=== PATIENT | female | born 1975 | race African-American/Black ===

== ENCOUNTER 2019-10-04 10:31 | Emergency (ER) | payer SELFPAY ==
[2019-10-04] MEDS ORDERED: KETOROLAC 30 MG/ML INJ ONE (11:49)
[2019-10-04] MEDS ORDERED: NA CHLORIDE 0.9% 1,000 ML ONE (11:49)
[2019-10-04 12:10] LABS: Absolute Lymphocytes (CBC) 1.6 K/uL (0.7-4.9); Basophils % 0.9 % (0-1.3); Hematocrit 32.5 % (36.0-45.0); MPV 7.3 fL (7.6-11.3); RBC Red Blood Cell Count 3.31 M/uL (3.86-4.86)
[2019-10-04 12:14] LABS: Urine Blood 1+ (NEG); Urine Glucose NEGATIVE (NEG); Urine Protein NEGATIVE (NEG); Urine pH 6.5 (5.0-7.0)
[2019-10-04 12:26] LABS: ALT/SGPT 19 U/L (12-78); AST/SGOT 13 U/L (15-37); Albumin 3.4 g/dL (3.4-5.0); Alkaline Phosphatase 42 U/L (45-117); BUN Blood Urea Nitrogen 13 mg/dL (7-18); Bicarbonate 27 mmol/L (21-32); Bilirubin Direct 0.2 mg/dL (0-0.2); Bilirubin Total 0.5 mg/dL (0.2-1.0); Glucose Level 97 mg/dL (74-106); Lipase 153 U/L (73-393); Potassium 4.2 mmol/L (3.5-5.1); Protein, Total 6.9 g/dL (6.4-8.2); Sodium Level 139 mmol/L (136-145)
--- NOTE | 2019-10-04 13:06 | RAD REPORT ---
EXAM DESCRIPTION: CT - Abdomen Pelvis W Contrast - 10/04/2019 12:59 pm CLINICAL HISTORY: Flank pain;Abd pain COMPARISON: No comparisons TECHNIQUE: Biphasic, helical CT imaging of the abdomen and pelvis was performed following 100 ml non -ionic IV contrast. No oral contrast administered. All CT scans are performed using dose optimization technique as appropriate and may include automated exposure control or mA/KV adjustment according to patient size. FINDINGS: No suspicious findings in the lung bases. The liver, spleen, and pancreas show no suspicious findings. Cholecystectomy clips are present. No ab normal biliary tree dilatation. Symmetric renal function is seen with no hydronephrosis or suspicious renal mass. No pyelonephritis o r acute parenchymal process. No bladder abnormalities. No adrenal abnormalities. No dilated bowel loops or bowel wall thickening. Appendectomy clips are seen. Moderate stool volume p resent in the colon. No free air or pneumatosis. Physiologic quantity of fluid seen in the cul de sac. There is congestio n or edema in the adnexal fatty tissues. Myometrium of the uterus is slightly heterogeneous and could contain small fibroids. No dominant mass lesions seen. Ovaries are difficult to uniquely identified distinguish from the adjacent on opacified bowel. A primary or dominant ovarian process is not suspec beto. No hernia, mass or bulky lymphadenopathy. No suspicious bony findings. IMPRESSION: Physiologic quantity of fluid is present in the cul de sac. There is some congestion or edema in the adnexal fatty tissues but no discrete ovarian process seen. No acute GI process. No pyelonephritis seen. Urinary bladder is only partially filled limiting evaluation of cystitis.
[2019-10-04] MEDS ORDERED: CEFTRIAXONE/SWI 1gm 1 GM/10 ML SYR ONE (13:51)
[2019-10-04] MEDS ORDERED: DICYCLOMINE HCL 10 MG CAP ONE (14:11)
--- NOTE | 2019-10-04 14:57 | ER ---
Nurse's Notes [facility] Name: Erin Ivan Age: 44 yrs Sex: Female : 1975 Arrival Date: 10/04/2019 Time: 10:34 Bed 18 Private MD: None, None Diagnosis: Urinary tract infection, site not specified Presentation: 10/03 10:50 Chief complaint: Patient states: suprapubic pain and low back pain that began 3 days ss ago. Coronavirus screen: Proceed with normal triage. Patient denies a cough. Patient denies shortness of breath or difficulty breathing. Patient denies measured and/or subjective temperature greater than 100.4F prior to today's visit. Patient denies travel on a cruise ship or to a country the [facility] currently lists as an affected area. Patient denies contact with known and/or suspected case of COVID-19. Ebola Screen: Patient denies exposure to infectious person. Patient denies travel to an Ebola-affected area in the 21 days before illness onset. Initial Sepsis Screen: Does the patient meet any 2 criteria? No. Patient's initial sepsis screen is negative. Does the patient have a suspected source of infection? No. Patient's initial sepsis screen is negative. Risk Assessment: Do you want to hurt yourself or someone else? Patient reports no desire to harm self or others. Onset of symptoms was October 01, 2019. 10:50 Method Of Arrival: Ambulatory ss 10:50 Acuity: BLANCA 3 ss Triage Assessment: 13:56 General: Appears. Historical: - Allergies: 10:54 No Known Allergies; ss - Immunization history:: Adult Immunizations up to date. - Social history:: Smoking status: Patient reports the use of cigarette tobacco products, denies chronic smoking, but will smoke occasionally. Screenin:56 Abuse screen: Denies threats or abuse. Nutritional screening: No deficits noted. Tuberculosis screening: No symptoms or risk factors identified. Fall Risk None identified. Assessment: 11:15 General: Appears uncomfortable, Behavior is calm, cooperative. Pain: Complains of pain ah in pelvis Pain does not radiate. Pain currently is 8 out of 10 on a pain scale. Quality of pain is described as crampy, Pain began 2-3 days ago. Neuro: Level of Consciousness is awake, alert, Oriented to person, place, time. Cardiovascular: Heart tones S1 S2 present Capillary refill < 3 seconds Patient's skin is warm and dry. Respiratory: Airway is patent Respiratory effort is even, unlabored, Respiratory pattern is regular, symmetrical. GI: Bowel sounds present X 4 quads. Abdomen is tender to palpation in suprapubic area Reports nausea. : Reports pain in suprapubic area with urination. EENT: No signs and/or symptoms were reported regarding the EENT system. Derm: No signs and/or symptoms reported regarding the dermatologic system. Musculoskeletal: No signs and/or symptoms reported regarding the musculoskeletal system. 12:46 Reassessment: Pt to CT scan via WC. 13:00 Reassessment: Patient and/or family updated on plan of care and expected duration. Pain ah level reassessed. Awaiting results from radiology and labs Patient states feeling better. 13:45 Reassessment: Pt complaining of pain again and also states that she has not had ah anything to eat today. Informed provider. Awaiting on orders. 14:15 Reassessment: Pt lying in bed with no distress noted. 15:00 Reassessment: Discharge instructions given. Education on prescriptions given and voiced ah understanding. Vital Signs: 10:50 BP 118 / 87; Pulse 76; Resp 16; Temp 98.2(TE); Pulse Ox 100% on R/A; Weight 61.23 kg; ss Height 5 ft. 8 in. (172.72 cm); Pain 9/10; 12:00 BP 117 / 78; Pulse 63; Resp 18; Pulse Ox 100% ; ah 13:49 BP 114 / 73; Pulse 63; Resp 15; Pulse Ox 100% ; ah 14:45 BP 108 / 87; Pulse 76; Resp 18; Pulse Ox 100% ; ah 10:50 Body Mass Index 20.53 (61.23 kg, 172.72 cm) ED Course: 10:34 Patient arrived in ED. mr 10:35 None, None is Private Physician. mr 10:53 Triage completed. ss 10:54 Arm band placed on right wrist. ss 11:01 Vladimir Lam NP is PHCP. pm1 11:01 Tay Park MD is Attending Physician. pm1 11:40 Elsa Villareal, ROSALINA is Primary Nurse. ah 11:50 Inserted saline lock: 22 gauge in left antecubital area, using aseptic technique. ah 12:00 Urine collected: clean catch specimen, clear, cindy colored. jp3 12:59 CT completed. Patient moved back from CT. mw3 12:59 CT Abd/Pelvis - IV Contrast Only In Process Unspecified. [facility] 13:57 Patient has correct armband on for positive identification. Bed in low position. Call light in reach. Side rails up X2. 15:00 No provider procedures requiring assistance completed. IV discontinued, intact, Pressure dressing applied. Administered Medications: 11:22 CANCELLED (Physician Discretion): morphine 4 mg IVP once; RASS on ADMIN: Combtv4, Very pm1 Agttd3, Agttd2, Rstlss1, AlertClm0, Drwsy-1, Lt Sdtn-2, Mod Sdtn-3, Dp Sdtn-4, UnArsble-5 11:22 Not Given (Physician Discretion): Zofran (Ondansetron) 4 mg IVP once; over 2 minutes pm1 11:55 Drug: NS 0.9% 1000 ml Route: IV; Rate: 1000 ml; Site: left antecubital; 13:47 Follow up: Response: No adverse reaction; IV Status: Completed infusion 15:43 Follow up: Response: No adverse reaction; IV Status: Completed infusion; IV Intake: 1000ml 11:55 Drug: TORadol - Ketorolac 15 mg Route: IVP; Site: left antecubital; 12:55 Follow up: Response: No adverse reaction; Pain is decreased 14:10 Drug: Bentyl 20 mg Route: PO; 15:10 Follow up: Response: No adverse reaction 14:11 Drug: Rocephin 1 grams Route: IV; Rate: calculated rate; Site: left antecubital; 15:42 Follow up: Response: No adverse reaction; IV Status: Completed infusion Intake: 15:43 IV: 1000ml; Total: 1000ml. Outcome: 14:56 Discharge ordered by MD. pm1 15:20 Discharged to home ambulatory. 15:20 Condition: stable 15:20 Discharge instructions given to patient, Instructed on discharge instructions, follow up and referral plans. Demonstrated understanding of instructions, follow-up care, medications, Prescriptions given X 2. 15:45 Patient left the ED. Signatures: Dispatcher [employer] EDMS Ingrid Diaz mr Sylvia Oshea, RN RN ss Vladimir Lam, KAIAWHINA KAIAWHINA pm1 Joselin Mayorga mw3 Deandre Martinez jp3 Elsa Villareal, RN RN
--- NOTE | 2019-10-04 14:57 | EDPHYS ---
Physician Documentation [facility] Name: Erin Ivan Age: 44 yrs Sex: Female : 1975 Arrival Date: 10/04/2019 Time: 10:34 Bed 18 Private MD: None, None ED Physician Tay Park HPI: 10/03 11:22 This 44 yrs old Black Female presents to ER via Ambulatory with complaints of Abdominal pm1 Pain, Back Pain. 11:22 The patient presents with abdominal pain suprapubic area. Onset: The symptoms/episode pm1 began/occurred 3 day(s) ago. The symptoms radiate to the right flank. Associated signs and symptoms: Pertinent positives: Right lower abdominal pain with urination, Pertinent negatives: nausea, vomiting, and diarrhea, chest pain, fever, shortness of breath, vaginal discharge. The symptoms are described as sharp. Modifying factors: The symptoms are alleviated by nothing, the symptoms are aggravated by Urination. Severity of pain: in the emergency department the pain is actually worse. The patient has not experienced similar symptoms in the past. Historical: - Allergies: 10:54 No Known Allergies; ss - Immunization history:: Adult Immunizations up to date. - Social history:: Smoking status: Patient reports the use of cigarette tobacco products, denies chronic smoking, but will smoke occasionally. ROS: 11:25 Constitutional: Negative for fever, chills, and weight loss, Cardiovascular: Negative pm1 for chest pain, palpitations, and edema, Respiratory: Negative for shortness of breath, cough, wheezing, and pleuritic chest pain. 11:25 MS/Extremity: Negative for injury and deformity, Skin: Negative for injury, rash, and discoloration, Neuro: Negative for headache, weakness, numbness, tingling, and seizure. 11:25 Abdomen/GI: Positive for abdominal pain, of the suprapubic area, Negative for nausea, vomiting, and diarrhea. 11:25 Back: Positive for flank pain, on the right, Negative for pain with movement. 11:25 : Positive for burning with urination. Exam: 11:25 Constitutional: This is a well developed, well nourished patient who is awake, alert, pm1 and in no acute distress. Head/Face: Normocephalic, atraumatic. Neck: Trachea midline, no thyromegaly or masses palpated, and no cervical lymphadenopathy. Supple, full range of motion without nuchal rigidity, or vertebral point tenderness. No Meningismus. Chest/axilla: Normal chest wall appearance and motion. Nontender with no deformity. No lesions are appreciated. 11:25 Back: No spinal tenderness. No costovertebral tenderness. Full range of motion. Skin: Warm, dry with normal turgor. Normal color with no rashes, no lesions, and no evidence of cellulitis. MS/ Extremity: Pulses equal, no cyanosis. Neurovascular intact. Full, normal range of motion. 11:25 Cardiovascular: Exam negative for acute changes, Rate: normal, Rhythm: regular, Pulses: no pulse deficits are appreciated, Edema: is not appreciated. 11:25 Respiratory: Exam negative for acute changes, respiratory distress, shortness of breath. 11:25 Abdomen/GI: Inspection: abdomen appears normal, Palpation: soft, mild abdominal tenderness, in the suprapubic area, mass, is not appreciated, rebound tenderness, is not appreciated. 11:25 Neuro: Exam negative for acute changes, Orientation: is normal, Mentation: is normal, Motor: is normal, moves all fours. Vital Signs: 10:50 BP 118 / 87; Pulse 76; Resp 16; Temp 98.2(TE); Pulse Ox 100% on R/A; Weight 61.23 kg; ss Height 5 ft. 8 in. (172.72 cm); Pain 9/10; 12:00 BP 117 / 78; Pulse 63; Resp 18; Pulse Ox 100% ; ah 13:49 BP 114 / 73; Pulse 63; Resp 15; Pulse Ox 100% ; ah 14:45 BP 108 / 87; Pulse 76; Resp 18; Pulse Ox 100% ; ah 10:50 Body Mass Index 20.53 (61.23 kg, 172.72 cm) ss MDM: 11:01 Patient medically screened. pm1 11:23 ED course: Patient does not want any narcotic medications. pm1 14:55 Data reviewed: vital signs. Data interpreted: Pulse oximetry: on room air is 100 %. pm1 Interpretation: normal. Counseling: I had a detailed discussion with the patient and/or guardian regarding: the historical points, exam findings, and any diagnostic results supporting the discharge/admit diagnosis, lab results, radiology results, the need for outpatient follow up, to return to the emergency department if symptoms worsen or persist or if there are any questions or concerns that arise at home. 10/03 11:22 Order name: Basic Metabolic Panel; Complete Time: 12:29 pm1 10/03 11:22 Order name: CBC with Diff; Complete Time: 12:21 pm1 10/03 11:22 Order name: Creatinine for Radiology; Complete Time: 12:21 pm1 10/03 11:22 Order name: Hepatic Function; Complete Time: 12:29 pm1 10/03 11:22 Order name: Lipase; Complete Time: 12:29 pm1 10/03 12:09 Order name: Urine Dipstick--Ancillary (enter results); Complete Time: 12:21 tt3 10/03 11:22 Order name: CT Abd/Pelvis - IV Contrast Only; Complete Time: 13:08 pm1 10/03 12:09 Order name: Urine --Ancillary (enter results); Complete Time: 12:21 tt3 10/03 11:22 Order name: IV Saline Lock; Complete Time: 12:03 pm10/03 11:22 Order name: Labs collected and sent; Complete Time: 12:03 pm1 Administered Medications: 11:22 CANCELLED (Physician Discretion): morphine 4 mg IVP once; RASS on ADMIN: Combtv4, Very pm1 Agttd3, Agttd2, Rstlss1, AlertClm0, Drwsy-1, Lt Sdtn-2, Mod Sdtn-3, Dp Sdtn-4, UnArsble-5 11:22 Not Given (Physician Discretion): Zofran (Ondansetron) 4 mg IVP once; over 2 minutes pm1 11:55 Drug: NS 0.9% 1000 ml Route: IV; Rate: 1000 ml; Site: left antecubital; ah 13:47 Follow up: Response: No adverse reaction; IV Status: Completed infusion ah 15:43 Follow up: Response: No adverse reaction; IV Status: Completed infusion; IV Intake: ah 1000ml 11:55 Drug: TORadol - Ketorolac 15 mg Route: IVP; Site: left antecubital; ah 12:55 Follow up: Response: No adverse reaction; Pain is decreased ah 14:10 Drug: Bentyl 20 mg Route: PO; ah 15:10 Follow up: Response: No adverse reaction ah 14:11 Drug: Rocephin 1 grams Route: IV; Rate: calculated rate; Site: left antecubital; 15:42 Follow up: Response: No adverse reaction; IV Status: Completed infusion Disposition: 10/04/19 14:56 Discharged to Home. Impression: Urinary tract infection, site not specified. - Condition is Stable. - Discharge Instructions: Abdominal Pain, Adult, Urinary Tract Infection, Adult. - Prescriptions for Bentyl 20 mg Oral Tablet - take 1 tablet by ORAL route every 6 hours As needed; 20 tablet. Macrobid 100 mg Oral Capsule - take 1 capsule by ORAL route every 12 hours for 10 days; 20 capsule. - Medication Reconciliation Form, Thank You Letter, Antibiotic Education, Prescription Opioid Use form. - Follow up: Emergency Department; When: As needed; Reason: Worsening of condition. Follow up: Private Physician; When: 2 - 3 days; Reason: Recheck today's complaints, Continuance of care, Re-evaluation by your physician. - Problem is new. - Symptoms have improved. Addendum: 10/06/2019 20:16 Co-signature as Attending Physician, Tay Park MD I agree with the assessment and c gomez plan of care. Signatures: Dispatcher [employer] Tay Medina MD MD cha Smirch, Shelby, RN RN Vladimir Chavez NP [employer] pm1 Elsa Villareal RN RN Corrections: (The following items were deleted from the chart) 10/03 11:22 11:22 morphine 4 mg IVP once; RASS on ADMIN: Combtv4, Very Agttd3, Agttd2, Rstlss1, pm1 AlertClm0, Drwsy-1, Lt Sdtn-2, Mod Sdtn-3, Dp Sdtn-4, UnArsble-5 ordered. pm1 15:45 14:56 10/04/2019 14:56 Discharged to Home. Impression: Urinary tract infection, site ah not specified. Condition is Stable. Forms are Medication Reconciliation Form, Thank You Letter, Antibiotic Education, Prescription Opioid Use. Follow up: Emergency Department; When: As needed; Reason: Worsening of condition. Follow up: Private Physician; When: 2 - 3 days; Reason: Recheck today's complaints, Continuance of care, Re-evaluation by your physician. Problem is new. Symptoms have improved. pm1
[2019-10-04 16:16] VITALS: TEMP 98.2; O2SAT 100
[2019-10-04 16:19] VITALS: BP 114/73
== END 2019-10-04 15:45 | disposition home or self-care (01) ==
LOC: ER 10:31
DX: N39.0 Urinary tract infection, site not specified (principal); F17.210 Nicotine dependence, cigarettes, uncomplicated
CPT/HCPCS: 36415; 74177; 80048; 80076; 81003; 81025; 83690; 85025; 96361; 96365; 96366; 96375; 99284; J0696; J7030; Q9967

== ENCOUNTER 2020-05-04 12:57 | Emergency (ER) | payer SELFPAY ==
[2020-05-04 13:55] LABS: Absolute Lymphocytes (CBC) 1.8 K/uL (0.7-4.9); Basophils % 0.2 % (0-1.3); Hematocrit 34.3 % (36.0-45.0); Lymphocytes % 24.1 % (15.3-44.8); MPV 7.5 fL (7.6-11.3); RBC Red Blood Cell Count 3.61 M/uL (3.86-4.86)
[2020-05-04 14:05] LABS: Urine Bacteria <20 /HPF (<20); Urine RBC <5 /HPF (NONE SEEN)
[2020-05-04 14:26] LABS: Urine Blood TRACE (NEG); Urine Glucose TRACE (NEG)
[2020-05-04 14:27] LABS: Urine Protein 2+ (NEG)
[2020-05-04] MEDS ORDERED: KETOROLAC 30 MG/ML INJ ONE (14:30)
--- NOTE | 2020-05-04 14:32 | RAD REPORT ---
EXAM DESCRIPTION: CT - Stone Protocol - 05/04/2020 1:47 pm CLINICAL HISTORY: FLANK PAIN, right-side with prior appendectomy cholecystectomy procedures COMPARISON: Abdomen and Pelvis W Contrast dated 10/04/2019 TECHNIQUE: Axial 3 mm thick images were obtained without oral or IV contrast. The [id number] span s the entirety of the system including uppermost abdomen and lung bases. All CT scans are performed using dose optimization technique as appropriate and may include automated exposure control or mA/KV adjustment according to patient size. FINDINGS: No hydronephrosis is present and no obstructing ureteral calculi. Small calcification at t he right pelvis matches a has a phlebolith to the October 04, 2019 study. There is a punctate nonobstructi ng calculus in the lateral mid left kidney calyx. No suspicious renal masses. Isodense masses and julio c lonephritis are not excluded on a stone protocol CT scan. No significant adrenal finding. No urinary bladder suspicious finding. No uterine abnormality seen. Left ovarian cyst is suspected posteriorly o n the left. No right ovarian abnormality suspected. Trace physiologic free fluid. Imaged portions of the liver, spleen and pancreas show no suspicious findings on non-contrast imaging . Cholecystectomy clips are present. No biliary tree dilatation. No suspicious bowel findings. Appendectomy clips are present. No acute GI process seen. No hernia, mass or bulky lymphadenopathy noted. No free air, free fluid or inflammatory stranding. No significant bony abnormality. IMPRESSION: No hydronephrosis, obstructing calculus or acute finding. Isodense masses and pyelonephritis are not excluded on stone protocol technique. As detailed above, no acute abdominal or pelvic process seen. No suspicious change from the September 2019 examination.
[2020-05-04 14:38] LABS: Albumin 3.9 g/dL (3.4-5.0); Bilirubin Direct 0.2 mg/dL (0-0.2); Bilirubin Total 0.6 mg/dL (0.2-1.0); Potassium 3.9 mmol/L (3.5-5.1); Protein, Total 7.9 g/dL (6.4-8.2)
--- NOTE | 2020-05-04 14:44 | EDPHYS ---
Physician Documentation [facility] Name: Erin Ivan Age: 45 yrs Sex: Female : 1975 Arrival Date: 05/04/2020 Time: 12:57 Bed 27 Private MD: ED Physician Mariella Steve HPI: 05/04 14:41 This 45 yrs old Black Female presents to ER via Ambulatory with complaints of low back kb pain. 14:41 The patient presents with pain that is acute, with no known mechanism of injury. The kb symptoms are located in the low back. The pain radiates to the right leg. The problem was sustained without known cause. Onset: The symptoms/episode began/occurred 2.5 day(s) ago. Modifying factors: The patient symptoms are alleviated by nothing, the patient symptoms are aggravated by any movement. Associated signs and symptoms: The patient has no apparent associated signs or symptoms. Severity of symptoms: At their worst the symptoms were moderate, in the emergency department the symptoms are unchanged. The patient has not experienced similar symptoms in the past. The patient has not recently seen a physician. Historical: - Allergies: 13:05 Doxepin; aa5 - Home Meds: 13:05 Norvasc 5 mg Oral tab 1 tab once daily [Active]; Hydroxyzine Oral [Active]; aa5 - PMHx: 13:05 Kidney stones; Anxiety; Acute Kidney failure; Hypertension; aa5 - PSHx: 13:05 Appendectomy; Cholecystectomy; aa5 - Immunization history:: Adult Immunizations unknown. - Social history:: Smoking status: Patient reports the use of cigarette tobacco products, 4 cigarettes a day . ROS: 14:40 Constitutional: Negative for fever, chills, and weight loss, Cardiovascular: Negative kb for chest pain, palpitations, and edema, Respiratory: Negative for shortness of breath, cough, wheezing, and pleuritic chest pain, Abdomen/GI: Negative for abdominal pain, nausea, vomiting, diarrhea, and constipation, : Negative for injury, bleeding, discharge, and swelling, MS/Extremity: Negative for injury and deformity, Skin: Negative for injury, rash, and discoloration, Neuro: Negative for headache, weakness, numbness, tingling, and seizure. 14:40 Back: Positive for pain at rest, pain with movement, of the right low back. Exam: 14:40 Constitutional: This is a well developed, well nourished patient who is awake, alert, kb and in no acute distress. Head/Face: Normocephalic, atraumatic. Chest/axilla: Normal chest wall appearance and motion. Nontender with no deformity. No lesions are appreciated. Cardiovascular: Regular rate and rhythm with a normal S1 and S2. No gallops, murmurs, or rubs. Normal PMI, no JVD. No pulse deficits. Respiratory: Lungs have equal breath sounds bilaterally, clear to auscultation and percussion. No rales, rhonchi or wheezes noted. No increased work of breathing, no retractions or nasal flaring. Abdomen/GI: Soft, non-tender, with normal bowel sounds. No distension or tympany. No guarding or rebound. No evidence of tenderness throughout. Skin: Warm, dry with normal turgor. Normal color with no rashes, no lesions, and no evidence of cellulitis. MS/ Extremity: Pulses equal, no cyanosis. Neurovascular intact. Full, normal range of motion. Neuro: Awake and alert, GCS 15, oriented to person, place, time, and situation. Cranial nerves II-XII grossly intact. Motor strength 5/5 in all extremities. Sensory grossly intact. Cerebellar exam normal. Normal gait. 14:40 Back: pain, that is moderate, of the right low back, ROM is painful, normal spinal alignment noted, CVA tenderness, is absent. Vital Signs: 13:00 BP 130 / 85; Pulse 91; Resp 16 S; Temp 98.4(O); Pulse Ox 100% on R/A; Weight 65.77 kg aa5 (R); Height 5 ft. 8 in. (172.72 cm) (R); Pain 10/10; 14:00 BP 135 / 80; Pulse 85; Resp 18; Pulse Ox 99% on R/A; zb 13:00 Body Mass Index 22.05 (65.77 kg, 172.72 cm) aa5 MDM: 13:23 Patient medically screened. kb 14:39 Data reviewed: vital signs, nurses notes. Data interpreted: Pulse oximetry: on room air kb is 100 %. Interpretation: normal. Counseling: I had a detailed discussion with the patient and/or guardian regarding: the historical points, exam findings, and any diagnostic results supporting the discharge/admit diagnosis, lab results, radiology results, the need for outpatient follow up, a family practitioner, to return to the emergency department if symptoms worsen or persist or if there are any questions or concerns that arise at home. 05/04 13:19 Order name: Urine Culture sn 05/04 13:19 Order name: Urine Microscopic Only snw 05/04 13:23 Order name: Basic Metabolic Panel kb 05/04 13:23 Order name: CBC with Diff kb 05/04 13:23 Order name: Hepatic Function kb 05/04 13:23 Order name: Lipase kb 05/04 13:31 Order name: Urine Dipstick--Ancillary (enter results) bd 05/04 13:31 Order name: Urine --Ancillary (enter results) bd 05/04 13:47 Order name: Urine Culture EDIN 05/04 13:50 Order name: CBC with Automated Diff; Complete Time: 13:57 EDMS 05/04 14:05 Order name: Urine Microscopic Only; Complete Time: 14:10 EDMS 05/04 14:26 Order name: Urine --Ancillary; Complete Time: 14:29 EDMS 05/04 14:26 Order name: Urine Dipstick-Ancillary; Complete Time: 14:29 EDMS 05/04 14:38 Order name: Basic Metabolic Panel; Complete Time: 14:44 EDMS 05/04 13:19 Order name: Urine Test (obtain specimen); Complete Time: 13:21 snw 05/04 13:19 Order name: Urine Dipstick-Ancillary (obtain specimen); Complete Time: 13:21 [facility] 05/04 13:23 Order name: IV Saline Lock; Complete Time: 13:41 kb 05/04 13:23 Order name: Labs collected and sent; Complete Time: 13:41 kb 05/04 13:23 Order name: CT Stone Protocol; Complete Time: 14:35 kb 05/04 14:38 Order name: Liver (Hepatic) Function; Complete Time: 14:44 EDMS 05/04 14:38 Order name: Lipase; Complete Time: 14:44 EDMS Administered Medications: 14:15 Drug: TORadol - Ketorolac 15 mg Route: IVP; Site: left antecubital; zb 14:30 Follow up: Response: No adverse reaction; Marked relief of symptoms; Pain is decreased zb Disposition: 18:32 Co-signature as Attending Physician, Mariella Steve MD. ma2 Disposition: 05/04/20 14:43 Discharged to Home. Impression: Low back pain, Sciatica, right side. - Condition is Stable. - Discharge Instructions: Back Pain, Adult, [id number], Sciatica, [id number]-Awka. - Prescriptions for Cyclobenzaprine 10 mg Oral Tablet - take 1 tablet by ORAL route every 8 hours As needed; 21 tablet. Diclofenac Sodium 75 mg Oral Tablet, Delayed Release (E.C.) - take 1 tablet by ORAL route 2 times per day As needed; 30 tablet. - Medication Reconciliation Form, Thank You Letter, Antibiotic Education, Prescription Opioid Use form. - Follow up: Emergency Department; When: As needed; Reason: Worsening of condition. Follow up: Private Physician; When: 2 - 3 days; Reason: Recheck today's complaints, Continuance of care, Re-evaluation by your physician. Signatures: Dispatcher [employer] EDKhalida Santacruz, MANI-C CLAMP REMOVER-Ckb Moni Altamirano FNP-C CLAMP REMOVER-CsnSweta Veolz, RN RN aa5 Mariella Steve MD MD ma2 Fanny Harrell RN RN zb Corrections: (The following items were deleted from the chart) 14:57 14:43 05/04/2020 14:43 Discharged to Home. Impression: Low back pain; Sciatica, right zb side. Condition is Stable. Forms are Medication Reconciliation Form, Thank You Letter, Antibiotic Education, Prescription Opioid Use. Follow up: Emergency Department; When: As needed; Reason: Worsening of condition. Follow up: Private Physician; When: 2 - 3 days; Reason: Recheck today's complaints, Continuance of care, Re-evaluation by your physician. kb
--- NOTE | 2020-05-04 14:44 | ER ---
Nurse's Notes [facility] Name: Erin Ivan Age: 45 yrs Sex: Female : 1975 Arrival Date: 05/04/2020 Time: 12:57 Bed 27 Private MD: Diagnosis: Low back pain;Sciatica, right side Presentation: 05/04 13:00 Chief complaint: Patient states: right flank that began 1 day ago. Pt also reports aa5 diarrhea x 1 week ago, denies nausea/vomiting. 13:00 Coronavirus screen: Client denies travel out of the [place] in the last 14 days. At this aa5 time, the client does not indicate any symptoms associated with coronavirus-19. Ebola Screen: Patient negative for fever greater than or equal to 101.5 degrees Fahrenheit, and additional compatible Ebola Virus Disease symptoms. Initial Sepsis Screen: Does the patient meet any 2 criteria? No. Patient's initial sepsis screen is negative. Does the patient have a suspected source of infection? No. Patient's initial sepsis screen is negative. Risk Assessment: Do you want to hurt yourself or someone else? Patient reports no desire to harm self or others. Onset of symptoms was April 2020. 13:00 Method Of Arrival: Ambulatory aa5 13:00 Acuity: BLANCA 3 aa5 Historical: - Allergies: 13:05 Doxepin; aa5 - Home Meds: 13:05 Norvasc 5 mg Oral tab 1 tab once daily [Active]; Hydroxyzine Oral [Active]; aa5 - PMHx: 13:05 Kidney stones; Anxiety; Acute Kidney failure; Hypertension; aa5 - PSHx: 13:05 Appendectomy; Cholecystectomy; aa5 - Immunization history:: Adult Immunizations unknown. - Social history:: Smoking status: Patient reports the use of cigarette tobacco products, 4 cigarettes a day . Screenin:44 Abuse screen: Denies threats or abuse. Denies injuries from another. Nutritional zb screening: No deficits noted. Tuberculosis screening: No symptoms or risk factors identified. Fall Risk No fall in past 12 months (0 pts). No secondary diagnosis (0 pts). IV access (20 points). Ambulatory Aid- None/Bed Rest/Nurse Assist (0 pts). Gait- Normal/Bed Rest/Wheelchair (0 pts) Mental Status- Oriented to own ability (0 pts). Total Watters Fall Scale indicates No Risk (0-24 pts). Assessment: 13:39 General: Appears in no apparent distress. uncomfortable, well groomed, Behavior is zb calm, cooperative, appropriate for age, Reports fatigue for 2-3 days. Pain: Complains of pain in right flank area Pain radiates to towards pelvis Pain currently is 8 out of 10 on a pain scale. Quality of pain is described as throbbing, Pain began 2-3 days ago. Is continuous, Alleviated by nothing. Noted to be grimacing. Neuro: Level of Consciousness is awake, alert, obeys commands, Oriented to person, place, time, situation. Cardiovascular: Heart tones S1 S2 present Capillary refill < 3 seconds in bilateral fingers Patient's skin is warm and dry. Respiratory: Airway is patent Respiratory effort is even, unlabored, Respiratory pattern is regular, symmetrical. GI: Abdomen is flat, non-distended, Bowel sounds present X 4 quads. Abd is soft and non tender X 4 quads. : Denies burning with urination, discharge, inability to void, incontinence. EENT: No signs and/or symptoms were reported regarding the EENT system. Derm: No signs and/or symptoms reported regarding the dermatologic system. Skin is intact, Skin is pink, warm \T\ dry. normal. Musculoskeletal: Circulation, motion, and sensation intact. Range of motion: intact in all extremities. 14:40 Reassessment: Patient appears in no apparent distress at this time. Patient and/or zb family updated on plan of care and expected duration. Pain level reassessed. Patient is alert, oriented x 3, equal unlabored respirations, skin warm/dry/pink. Patient states feeling better. Patient states symptoms have improved. Vital Signs: 13:00 BP 130 / 85; Pulse 91; Resp 16 S; Temp 98.4(O); Pulse Ox 100% on R/A; Weight 65.77 kg aa5 (R); Height 5 ft. 8 in. (172.72 cm) (R); Pain 10/10; 14:00 BP 135 / 80; Pulse 85; Resp 18; Pulse Ox 99% on R/A; zb 13:00 Body Mass Index 22.05 (65.77 kg, 172.72 cm) aa5 ED Course: 12:57 Patient arrived in ED. ag5 13:02 Arm band placed on. aa5 13:03 Triage completed. aa5 13:14 Fanny Harrell, RN is Primary Nurse. zb 13:23 Khalida Pak [facility]NP-C [facility]. kb 13:23 Mariella Steve MD is Attending Physician. kb 13:40 Missed attempt(s): 20 gauge in left antecubital area. Bleeding controlled, band aid jd3 applied, catheter tip intact. 13:42 Inserted saline lock: 22 gauge in left antecubital area, using aseptic technique. Blood jd3 collected. 13:44 Patient has correct armband on for positive identification. Bed in low position. Call zb light in reach. Side rails up X 1. Door closed. Noise minimized. 13:45 Urine Culture Sent. zb 13:45 Urine Microscopic Only Sent. zb 13:45 Basic Metabolic Panel Sent. zb 13:45 CBC with Diff Sent. zb 13:45 Hepatic Function Sent. zb 13:45 Lipase Sent. zb 13:46 CT Stone Protocol In Process Unspecified. EDMS 14:56 No provider procedures requiring assistance completed. IV discontinued, intact, zb bleeding controlled, No redness/swelling at site. Pressure dressing applied. Administered Medications: 14:15 Drug: TORadol - Ketorolac 15 mg Route: IVP; Site: left antecubital; zb 14:30 Follow up: Response: No adverse reaction; Marked relief of symptoms; Pain is decreased zb Outcome: 14:43 Discharge ordered by MD. kb 14:56 Discharged to home ambulatory. zb 14:56 Condition: stable 14:56 Discharge instructions given to patient, Instructed on discharge instructions, follow up and referral plans. medication usage, Demonstrated understanding of instructions, follow-up care, medications, Prescriptions given X 2. 14:57 Patient left the ED. zb Signatures: Dispatcher [employer] EDMS Khalida Pak FNP-C FNP-Sweta Shelby RN RN Ponce Newell RN RN Georgina Craig ag5 Fanny Harrell RN RN zb
--- OUTSIDE RECORDS SUMMARY | 2020-05-04 17:50 | XMS REPORT | Clinical Summary ---
:1975 Author Organization [facility] Address [address] [place] [address] Care Team Providers Name Role Phone Asked, No Pcp Primary Care Provider Unavailable Allergies Active Allergy Reactions Severity Noted Date Comments Doxepin 06/29/2018 Medications Medication Sig Dispensed Refills Start Date End Date Status LORAZepam (ATIVAN) 0.5 Take 0.5 mg by 0 Active MG tablet mouth every 6 (six) hours as needed for anxiety. Active Problems Not on file Surgical History Surgery Date Site/Laterality Comments APPENDECTOMY CHOLECYSTECTOMY Medical History Medical History Date Comments Anxiety Social History Tobacco Use Types Packs/Day Years Used Date Current Some Day Smoker Cigarettes Smokeless Tobacco: Never Used Alcohol Use Drinks/Week oz/Week Comments No Alcohol Habits Answer Date Recorded How often do you have a drink containing alcohol? Never 06/29/2018 How many drinks containing alcohol do you have on a typical Not asked day when you are drinking? How often do you have six or more drinks on one occasion? 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
--- OUTSIDE RECORDS SUMMARY | 2020-05-04 17:50 | XMS REPORT | Clinical Summary ---
:1975 Author Organization [facility] Address [facility] [place] [address] Care Team Providers Name Role Phone Unavailable Primary Care Provider Unavailable Allergies Active Allergy Reactions Severity Noted Date Comments Doxepin 03/06/2017 Medications Medication Sig Dispensed Refills Start Date End Date Status cyclobenzaprine Take 1 tablet 20 tablet 0 04/28/2016 Active (FLEXERIL) 10 mg by mouth 3 tabletIndications: Neck times daily as muscle spasm needed for Muscle Spasms. naproxen (NAPROSYN) 500 Take 1 tablet 100 tablet 1 05/18/2016 Active mg tabletIndications: by mouth 2 Neck muscle spasm times daily (with meals) Prn pain. amLODIPine (NORVASC) 5 Take 1 tablet 90 tablet 1 09/07/2016 Active mg tabletIndications: by mouth daily Uncontrolled For high blood hypertension pressure. ibuprofen (MOTRIN) 600 Take 1 tablet 30 tablet 0 02/20/2017 Active mg tabletIndications: by mouth every Tooth pain 8 hours as needed for Pain. traMADol (ULTRAM) 50 mg Take 1 tablet 12 tablet 0 05/26/2017 Active tabletIndications: Tooth by mouth every pain 6 hours as needed for Pain. sertraline (ZOLOFT) 50 Take 1 tablet 30 tablet 2 06/15/2017 Active mg tabletIndications: by mouth daily. Panic attacks, MDD (major depressive disorder), recurrent episode, mild, ANDREW (generalized anxiety disorder) hydrOXYzine (ATARAX) 25 Take 1 tablet 30 tablet 2 06/15/2017 Active mg tabletIndications: by mouth ANDREW (generalized anxiety nightly at disorder) bedtime as needed for Anxiety or Insomnia. 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 Last Filed Vital Signs Not on file Plan of Treatment Health Maintenance Due Date Last Done Comments HPV Cervical Cancer Scrn 2006 Pap Cervical Cancer Scrn 2006 Breast Cancer Scrn (Yearly) 2016 IMM Influenza Seasonal Feb to July (>/= 19 yrs) 02/26/2020 Results Not on fileafter 05/04/2019 Insurance Payer Benefit Plan / Subscriber ID Effective Phone Address T ype Group Dates [facility] xxxxxxxxxxxx 2017-Prese [phone] [facility] CHOICE CHOICE nt [id number] [place] [phone] [facility] xxxxxxxxxxxx 2017-Prese [phone] HEALTH CHOICE STRATEGIES [facility] [phone] [place] [phone] [employer] Self [address] (Home) [address] [facility] [place] [address]
--- OUTSIDE RECORDS SUMMARY | 2020-05-04 17:51 | XMS REPORT | Continuity of Care Document ---
:1975 Author Organization [facility] t Address [address] [place] [address] Care Team Providers Name Role Phone Asked, No Pcp Primary Care Physician Unavailable Braxton William Jr Attending Clinician Baldo Dennison Attending Clinician Chris Harrell Attending Clinician Santos Rosario Attending Clinician Davide Link Attending Clinician Zaire Hernandez Attending Clinician Vladimir Muñoz Attending Clinician Faye Cortes Attending Clinician Sangita Mercedes Attending Clinician Anthony Lind Attending Clinician Braxton New Attending Clinician [phone] Payers Payer Name Policy Type Policy Number Effective Date Expiration Date S ource Problems Condition Condition Condition Status Onset Resolution Last Treating Co mments Source Name Details Category Date Date Treatment Clinician Date ABD. PAIN Diagnosis Active 2016-052017-04-02 Memoria 1-05 14:31:00 l ABD. 00:00: Peter PAIN 00 Active 04/01/2017 [facility] HIGH BLOOD Diagnosis Active 2016-052017-03-20 Memoria PRESSURE/T 0-24 10:49:00 l [place] HIGH 00:00: [place] BLOOD 00 PRESSURE/T OOTH[place]HE Active 03/20/2017 [facility] TOOTH ACHE Diagnosis Active 2016-052017-03-14 Memoria 0- 11:09:00 l TOOTH 00:00: [place] ACHE 00 Active 03/06/2017 [facility] Tooth pain Tooth pain Disease Active arris 9 Health 00:00: 00 Dental Dental Disease Active [facility] decay decay 02-20 Health 00:00: 00 Irreversib Irreversib Disease Active H arris le le 02-20 Health pulpitis pulpitis 00:00: 00 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), disorder), 00:00: recurrent recurrent 00 episode, episode, mild mild ANDREW ANDREW Disease Active Mono (generaliz (generaliz 4-18 He alth ed anxiety ed anxiety 00:00: disorder) disorder) 00 Panic Panic Disease Active Mono attacks attacks 4-18 Health 00:00: 00 Neck Neck Disease Active 2015-05 [facility] muscle muscle 2-02 Health spasm spasm 00:00: 00 BODYACHES Diagnosis Active 2016-01-17 Memoria AND 8 12:17:00 l HEADACHE 00:00: [place] BODYACHES 00 AND HEADACHE Active 01/17/2016 [facility] ABSCESS Diagnosis Active 2015-09-23 Me moria 4-28 21:14:00 l ABSCESS 00:00: Peter 00 Active 09/23/2015 [facility] N/V Diagnosis Active 2015-08-09 Mem oria 3-13 05:55:00 l N/V 00:00: [place] 00 Active 08/08/2015 [facility] LOWER Diagnosis Active 2015-08-09 Mem oria BACK, LEG - 05:38:00 l PAIN LOWER 00:00: Peter BACK, LEG 00 PAIN Active 07/26/2015 [facility] VOMITING/ Diagnosis Active 2014-052015-05-18 Memoria EAR ACHE/ 2-05 15:57:00 l FEVER 00:00: [place] VOMITING/ 00 EAR ACHE/ FEVER Active 05/01/2015 [facility] POSS. Diagnosis Active 2013-052014-05-19 Mem oria KIDNEY - 01:13:00 l STONE POSS. 00:00: [place] KIDNEY 00 STONE Active 05/18/2014 [facility] LUMP IN Diagnosis Active 2013-052014-04-16 Me moria THROAT/IGGY - 13:09:00 l K PAIN LUMP IN 00:00: [place] THROAT/IGGY 00 K PAIN Active 04/16/2014 [facility] COUGH/UBALDO Diagnosis Active 2014-09-09 Memoria ESTION 4- 11:25:00 l 00:00: Peter COUGH/UBALDO 00 ESTION Active 09/08/2013 [facility] Lumbago Problem 2017-10-05 Jf cammy with 00:56:04 l sciatica, Lumbago Herm tone left side with sciatica, left side 10/05/2017 [facility] Other Problem 2017-10-05 Memor ia chronic 00:56:04 l pain Other Peter chronic pain 8 [facility] Other Problem 2017-10-05 Memor ia symptoms 00:56:04 l and signs Other Patricio n involving symptoms the and signs musculoske involving letal the system musculoske letal system 10/05/2017 [facility] Other Problem 2017-10-05 Memor ia disturbanc 00:56:04 l es of skin Other [place] sensation disturbanc es of skin sensation 10/05/2017 [facility] Acute Problem Resolve 2017-10-07 Jf cammy depression d 13:41:03 l (disorder) Acute [place] depression (disorder) Resolved Problem 10/07/2017 [facility], [facility] [place] Anxiety Problem Resolve 2017-10-07 Mem oria (finding) d 13:41:03 l Anxiety Peter (finding) Resolved Problem 10/07/2017 [facility], [facility] [place] Hypertensi Problem Resolve 2017-10-07 Memoria ve d 13:41:03 l disorder, [place] systemic Hypertensi arterial ve (disorder) disorder, systemic arterial (disorder) Resolved Problem 10/07/2017 [facility], [facility] [place] Ulcerative Problem Resolve 2017-10-07 Memoria colitis d 13:41:03 l (disorder) Patricio n Ulcerative colitis (disorder) Resolved Problem 10/07/2017 [facility], [facility] summer Body mass Problem Active 2017-09-28 Me moria index 02:45:29 l (BMI) of Body [place] 25.0-25.9 mass index in adult (BMI) of 25.0-25.9 in adult Active Problem 09/28/2017 [facility] Unspecifie Problem 2016-052017-04-05 2017-04-05 Memoria d 1-06 02:38:51 02:38:51 l abdominal 06:00: [place] pain Unspecifie 00 d abdominal pain 04/02/2017 04/05/2017 [facility] Disorder Problem 2016-052017-03-23 2017-03-23 Memoria of teeth 0-24 02:52:43 02:52:43 l and Disorder 05:00: Patricio n supporting of teeth 00 structures and , supporting unspecifie structures d , unspecifie d 03/20/2017 03/23/2017 [facility] Discharge Problem 2016-01-20 2016-01-20 Memoria Diagnosis: 8- 03:12:42 03:12:42 l Viral 05:00: [place] syndrome Discharge 00 Diagnosis: Viral syndrome 6 01/20/2016 [facility] Discharge Problem 2015-09-26 2015-09-26 Memoria Diagnosis: - 04:13:11 04:13:11 l Chronic 05:00: Peter back pain Discharge 00 Diagnosis: Chronic back pain 09/23/2015 09/26/2015 [facility] Discharge Problem 2015-08-12 2015-08-12 Memoria Diagnosis: 3-14 03:12:17 03:12:17 l Influenza 05:00: [place] Discharge 00 Diagnosis: Influenza 08/09/2015 08/12/2015 [facility] Discharge Problem 2015-07-29 2015-07-29 Memoria Diagnosis: 2-29 05:59:59 05:59:59 l Left-sided 06:00: Patricio n low back Discharge 00 pain with Diagnosis: left-sided Left-sided sciatica low back pain with left-sided sciatica 6 07/29/2015 [facility] Discharge Problem 2014-052015-05-04 2015-05-04 Memoria Diagnosis: 2-05 02:36:15 02:36:15 l Sore 06:00: Peter throat Discharge 00 Diagnosis: Sore throat 05/01/2015 05/04/2015 [facility] Discharge Problem 2014-052015-05-04 2015-05-04 Memoria Diagnosis: 2-05 02:36:15 02:36:15 l Acute 06:00: [place] upper Discharge 00 respirator Diagnosis: y Acute infection upper respirator y infection 05/01/2015 05/04/2015 [facility] Discharge Problem 2014-052015-05-04 2015-05-04 Memoria Diagnosis: 2-05 02:36:15 02:36:15 l Acute 06:00: [place] viral Discharge 00 syndrome Diagnosis: Acute viral syndrome 05/04/2015 [facility] Discharge Problem 2014-09-10 2014-09-10 Memoria Diagnosis: 4-14 23:48:50 23:48:50 l Acute back 05:00: Patricio n pain Discharge 00 Diagnosis: Acute back pain 09/08/2014 09/10/2014 [facility] Discharge Problem 2014-09-10 2014-09-10 Memoria Diagnosis: 4- 23:48:50 23:48:50 l Acute 05:00: [place] sinusitis Discharge 00 Diagnosis: Acute sinusitis 09/08/2014 09/10/2014 [facility] Discharge Problem 2014-09-10 2014-09-10 Memoria Diagnosis: 4- 23:48:50 23:48:50 l Acute URI 05:00: [place] Discharge 00 Diagnosis: Acute URI 09/08/2014 09/10/2014 [facility] Discharge Problem 2013-052014-04-19 2014-04-19 Memoria Diagnosis: - 15:00:31 15:00:31 l Lymphadeno 06:00: Patricio n see Discharge 00 Diagnosis: Lymphadeno see 04/16/2014 04/19/2014 [facility] Discharge Problem 2013-052014-04-19 2014-04-19 Memoria Diagnosis: - 15:00:31 15:00:31 l Enlarged 06:00: Peter thyroid Discharge 00 Diagnosis: Enlarged thyroid 04/16/2014 04/19/2014 [facility] Discharge Problem 2013-052014-04-19 2014-04-19 Memoria Diagnosis: 06-16 15:00:31 15:00:31 l Pain in 06:00: [place] lower back Discharge 00 Diagnosis: Pain in lower back 04/16/2014 04/19/2014 [facility] Allergies, Adverse Reactions, Alerts Allergy Allergy Status Severity Reaction(s) Onset Inactive Treating Comm ents Source Name Type Date Date Clinician doxepin DA Active [place] 2018-0 [facility] 2-03 [place] 00:00: d 00 [facility] Doxepin Propensi Active [place] ty to 2-02 [facility] adverse 00:00: st reaction 00 s to drug doxepin DA Active [facility] 2017[facility] 8-11 [place] 00:00: d 00 [facility] ketorola DA Active [place] 2017-0 [facility] c 8-09 [place] 00:00: d 00 [facility] Doxepin Propensi Active 2016-05 [place] ty to 0-10 Health adverse 00:00: reaction 00 s to drug doxepin DA Active [facility] 0-06 [place] 00:[facility]: d [facility] Social History Social Habit Start Date Stop Date Quantity Comments Source History of Cigarette Smoker [place] Muslim tobacco use History [facility] Meth odist Alcohol Std Drinks History [facility] Meth odist Alcohol Binge Sex Assigned At [facility] Tobacco use and 2018-06-29 2018-06-29 Never used [place] M ethodist exposure 00:00:00 00:00:00 History [facility] 2018-06-29 2018-06-29 1 [place] Meth odist Alcohol Frequency 00:00:00 00:00:00 Alcohol intake 2017-03-06 2017-03-06 Current [facility] 00:00:00 00:00:00 non-drinker of alcohol (finding) Social History 2016-01-17 2016-01-17 [facility] 16:45:45 16:45:45 Smoking Status Start Date Stop Date Source Current some day smoker 2018-06-29 00:00:00 [place] Never smoker [facility] Medications Ordered Filled Start Stop Current Ordering Indication Dosage Frequency Signature Comments Components Source Medication Medication Date Date Medication? Clinician (SIG) Name Name LORAZepam Yes .5mg Q6H Take 0.5 [place] (ATIVAN) 2-02 mg by Methodi 0.5 MG 22:02: mouth st tablet 04 every 6 (six) hours as needed for anxiety. sertraline Yes ANDREW 50mg QD Take 1 Harri s (ZOLOFT) 50 1-19 (generalize tablet by Health mg tablet 00:00: d anxiety mouth 00 disorder) daily. hydrOXYzine Yes ANDREW 25mg Take 1 Luisa is (ATARAX) 25 1-19 (generalize tablet by Health mg tablet 00:00: d anxiety mouth 00 disorder) nightly at bedtime as needed for Anxiety or Insomnia. traMADol 2016-05 Yes Tooth pain 50mg Take 1 H arris (ULTRAM) 50 2-30 tablet by Hea lth mg tablet 00:00: mouth 00 every 6 hours as needed for Pain. 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, Duration: 30 day, Stop date: 05/02/17 0:00:00 GASTROINTESTINAL TECHNICIAN Saline 2016-05 No Notes: Memoria Flush 0.9% 06-02 (Same as: l 07:03: BD Posiflush) Amlodipine 2016-05 Yes 5 mg = 1 Mem oria 5 MG Oral 0-24 tab, PO, l Tablet 14:35: Daily, # [place] [Norvasc] 00 14 tab, 1 Refill(s) Epinephrine 2016-05 Yes Notes: Jf cammy 0.01 MG/ML 0-24 (Same as: l / Lidocaine 13:39: Xylocaine H ermann Hydrochlori 00 w/Epinephr de 10 MG/ML ine) Injectable Solution Bupivacaine 2016-05 Yes Notes: Jf cammy Hydrochlori 0-24 (Same As: l de 2.5 13:39: Marcaine, Patricio n MG/ML 00 Sensorcain Injectable e) Solution ibuprofen Yes Tooth pain 600mg Take 1 [place] (MOTRIN) 9-26 tablet by [facility] 600 mg 00:00: mouth tablet 00 every 8 hours as needed for Pain. amLODIPine Yes Uncontrolle 5mg QD Take 1 [place] (NORVASC) 5 4-13 d tablet by [facility] lt mg tablet 00:00: hypertensio mouth 00 n daily For high blood pressure. naproxen 2015-05 Yes Neck muscle 500mg Take 1 [place] (NAPROSYN) 2-22 spasm tablet by [facility] lt 500 mg 00:00: mouth 2 tablet 00 times daily (with meals) Prn pain. cyclobenzap 2015-05 Yes Neck muscle 10mg Take 1 [place] rine 2-02 spasm tablet by [facility] (FLEXERIL) 00:00: mouth 3 10 mg 00 times tablet daily as needed for Muscle Spasms. 200 ACTUAT Yes 1 puff, Jf cammy Albuterol 8-22 INHALATION l 0.09 18:09: , Q6H, PRN Peter MG/ACTUAT 00 for Metered wheezing, Dose # 9 gm, 0 Inhaler Refill(s) tramadol Yes 50 mg = 1 Jf cammy hydrochlori 3-14 tab, PO, l de 50 MG 11:49: BID, X 15 Herm tone Oral Tablet 00 day, # 30 tab, 0 Refill(s) Oseltamivir Yes 75 mg, PO, Memoria 75 MG Oral 3-14 Q12H, X 5 l Capsule 11:49: day, # 10 [place] [Tamiflu] 00 cap, 0 Refill(s) Zofran ODT No Notes: Memor ia 3-14 (Same as: l 10:17: Zofran Peter 00 ODT) Ketorolac No 30 mg, Memori a 3-14 Route: IM, l 10:10: Drug form: Peter 00 INJ, ONCE, Dosing Weight 69.5, kg, Priority: STAT, Start date: 08/09/15 5:10:00, Stop date: 08/09/15 5:10:00 Acetaminoph No 1 tab, Jf cammy en 325 MG / 08-08 Route: PO, l Hydrocodone 10:10: Drug Form: [place] Bitartrate 00 TAB, 5 MG Oral Dosing Tablet Weight [[place] 69.5, kg, 5/325] ONCE, STAT, Start date: 08/09/15 5:10:00, Stop date: 08/09/15 5:10:00 naproxen Yes 500 mg = 1 Mem oria 500 mg oral 07-26 tab, PO, l tablet 02:11: Q12H, PRN Patricio n 00 Pain, # 20 tab, 0 Refill(s) { Yes See Memoria (Methylpred 07-26 Instructio l nisolone 4 02:11: ns, PO, Herm tone MG Oral 00 Take by Tablet mouth as [Medrol]) } directed Pack on label., [Medrol X 6 day, # Dosepak] 1 Pack, 0 Refill(s) Cyclobenzap Yes 10 mg = 1 M emoria rine 3-01 tab, PO, l hydrochlori 02:11: TID, PRN He rmann de 10 MG 00 for spasm, Oral Tablet X 7 day, # [Flexeril] 21 tab, 0 Refill(s) Solu-Medrol No Notes: Jf cammy 07-26 (Same l 01:38: as:Solu-ME Peter 00 DROL, A-Methapre d) ketOROLAC No 4 days Memor ia 30 mg/mL 07-26 l injectable 01:38: MEDICATION H ermann solution 00 WASTE Product Size: 30 mg Product Wasted: 0 mg Robitussin- 2014-05 Yes 5 ml, PO, M emoria AC oral 2-05 Q6H, PRN l syrup 10:39: for cough Peter 00 and congestion , X 5 day, # 100 mL, 0 Refill(s) predniSONE 2014-05 Yes 40 mg = 2 Me moria 20 mg oral 2-05 tab, PO, l tablet 10:38: Daily, X 5 [place] 00 day, # 10 tab, 0 Refill(s) Ibuprofen 2014-05 No Notes: Memori a - (Same as: l 09:38: Motrin) "Do Not Crush" Take with food. Prednisone 2014-05 No Notes: Memor ia 2-05 Take with l 09:38: food. Promethazin Yes 5 ml, PO, M emoria e VC with 4-14 Q4H, PRN l Codeine 18:35: for cough, Herm tone oral syrup 00 # 120 mL, 0 Refill(s) pseudoephed Yes 60 mg = 1 M emoria rine 60 mg 4-14 tab, PO, l oral tablet 18:35: Q6H, PRN He rmann 00 Congestion , # 20 tab, 0 Refill(s) Amoxicillin 2013-05 Yes 875 mg = 1 Memoria 875 MG / 1-20 tab, PO, l Clavulanate 21:58: BID, # 20 H ermann 125 MG Oral 00 tab, 0 Tablet Refill(s) [Augmentin 875-mg] Acetaminoph 2013-05 Yes 1 - 2 tab, Memoria en 300 MG / 1-20 PO, Q4H, l Codeine 21:57: Pain, # 10 Herm tone Phosphate 00 tab, 0 30 MG Oral Refill(s) Tablet [Tylenol with Codeine #3] Acetaminoph 2013-05 No Notes: Jf cammy en 325 MG / -20 (Same as: l Hydrocodone 21:28: [place] Bitartrate 00 325/5) Do 5 MG Oral not exceed Tablet 4gm/day of [[place] acetaminop 5/325] hen. Ketorolac 2013-05 No 60 mg, Memori a 06-16 Route: IM, l 18:17: Drug form: INJ, ONCE, Dosing Weight 76.42, kg, Priority: STAT, Start date: 04/16/14 12:17:00, Stop date: 04/16/14 12:17:00 Orphenadrin 2013-05 No 60 mg, Jf cammy e 06-16 Route: IM, l 18:17: ONCE, Dosing Weight 76.42, kg, Priority: STAT, Start date: 04/16/14 12:17:00, Stop date: 04/16/14 12:17:00 Vital Signs Vital Name Observation Time Observation Value Comments Source Heart Rate 2017-04-02 08:30:00 [facility] [place] Respitory Rate 2017-04-02 08:30:00 Memori al Peter Systolic (mm Hg) 2017-04-02 08:30:00 Jf rial [place] Diastolic (mm Hg) 2017-04-02 08:30:00 Mem orial [place] Systolic (mm Hg) 2017-04-02 08:00:00 Jf rial [place] Diastolic (mm Hg) 2017-04-02 08:00:00 Mem orial [place] Heart Rate 2017-04-02 08:00:00 [facility] [place] Respitory Rate 2017-04-02 08:00:00 Memori al [place] Temperature Oral (F) 2017-04-02 06:59:00 98.7 F [facility] [place] Weight 2017-04-02 06:59:00 [facility] [place] Height 2017-04-02 06:59:00 172.72 cm [facility] [place] BMI Calculated 2017-04-02 06:59:00 Memori al Peter Systolic (mm Hg) 2017-03-20 14:42:00 Jf rial Peter Diastolic (mm Hg) 2017-03-20 14:42:00 Mem orial [place] Heart Rate 2017-03-20 14:42:00 [facility] [place] Temperature Oral (F) 2017-03-20 14:42:00 98.2 F [facility] [place] Respitory Rate 2017-03-20 14:42:00 Memori al [place] Height 2017-03-20 13:18:00 172.72 cm [facility] BMI Calculated 2017-03-20 13:18:00 Memori al [place] Weight 2017-03-20 13:18:00 [facility] [place] Respitory Rate 2017-03-20 13:18:00 Memori al [place] Heart Rate 2017-03-20 13:18:00 [facility] [place] Systolic (mm Hg) 2017-03-20 13:18:00 Jf rial [place] Diastolic (mm Hg) 2017-03-20 13:18:00 Mem orial [place] Temperature Oral (F) 2017-03-20 13:18:00 98.5 F [facility] [place] Systolic (mm Hg) 2017-03-07 01:01:00 Jf rial [place] Diastolic (mm Hg) 2017-03-07 01:01:00 Mem orial [place] Heart Rate 2017-03-07 01:01:00 [facility] [place] Respitory Rate 2017-03-07 01:01:00 Memori al Peter Temperature Oral (F) 2017-03-07 01:01:00 98.6 F [facility] [place] Weight 2017-03-07 01:01:00 [facility] [place] Height 2017-03-07 01:01:00 172.72 cm [facility] BMI Calculated 2017-03-07 01:01:00 Memori al Peter Heart Rate 2016-01-17 18:18:00 [facility] [place] Systolic (mm Hg) 2016-01-17 18:18:00 Jf rial [place] Diastolic (mm Hg) 2016-01-17 18:18:00 Mem orial [place] Respitory Rate 2016-01-17 18:18:00 Memori al Peter Temperature Oral (F) 2016-01-17 18:18:00 98.0 F [facility] [place] BMI Calculated 2016-01-17 16:00:00 Memori al Peter Weight 2016-01-17 16:00:00 [facility] [place] Height 2016-01-17 16:00:00 172.72 cm [facility] [place] Respitory Rate 2016-01-17 16:00:00 Memori al Peter Temperature Oral (F) 2016-01-17 16:00:00 98.3 F [facility] [place] Systolic (mm Hg) 2016-01-17 16:00:00 Jf rial [place] Diastolic (mm Hg) 2016-01-17 16:00:00 Mem orial Peter Heart Rate 2016-01-17 16:00:00 [facility] [place] Weight 2015-09-24 01:05:00 [facility] [place] BMI Calculated 2015-09-24 01:05:00 Memori al Peter Height 2015-09-24 01:05:00 172.72 cm [facility] [place] Respitory Rate 2015-09-24 01:05:00 Memori al Peter Temperature Oral (F) 2015-09-24 01:05:00 98.3 F [facility] [place] Systolic (mm Hg) 2015-09-24 01:05:00 Jf rial Peter Diastolic (mm Hg) 2015-09-24 01:05:00 Mem orial Peter Heart Rate 2015-09-24 01:05:00 [facility] [place] BMI Calculated 2015-09-24 01:01:00 Memori al Peter Height 2015-09-24 01:01:00 172.72 cm [facility] [place] Weight 2015-09-24 01:01:00 [facility] [place] Systolic (mm Hg) 2015-08-09 11:54:00 Jf rial [place] Diastolic (mm Hg) 2015-08-09 11:54:00 Mem orial Peter Respitory Rate 2015-08-09 11:54:00 Memori al [place] Heart Rate 2015-08-09 11:54:00 [facility] [place] Heart Rate 2015-08-09 11:00:00 [facility] [place] Systolic (mm Hg) 2015-08-09 11:00:00 Jf rial Peter Diastolic (mm Hg) 2015-08-09 11:00:00 Mem orial [place] Respitory Rate 2015-08-09 11:00:00 Memori al Peter Heart Rate 2015-08-09 10:00:00 [facility] [place] Systolic (mm Hg) 2015-08-09 10:00:00 Jf rial Peter Diastolic (mm Hg) 2015-08-09 10:00:00 Mem orial [place] Respitory Rate 2015-08-09 10:00:00 Memori al [place] Weight 2015-08-09 09:40:00 [facility] [place] BMI Calculated 2015-08-09 09:40:00 Memori al Peter Height 2015-08-09 09:40:00 172.72 cm [facility] Temperature Oral (F) 2015-08-09 09:40:00 99.5 F [facility] [place] Systolic (mm Hg) 2015-07-27 02:29:00 Jf rial Peter Diastolic (mm Hg) 2015-07-27 02:29:00 Mem orial [place] Respitory Rate 2015-07-27 02:29:00 Memori al [place] Heart Rate 2015-07-27 02:29:00 [facility] [place] Weight 2015-07-26 23:43:00 [facility] [place] BMI Calculated 2015-07-26 23:43:00 Memori al Peter Height 2015-07-26 23:43:00 172.72 cm [facility] Temperature Oral (F) 2015-07-26 23:43:00 98.5 F [facility] [place] Respitory Rate 2015-07-26 23:43:00 Memori al [place] Heart Rate 2015-07-26 23:43:00 [facility] [place] Systolic (mm Hg) 2015-07-26 23:43:00 Fj rial [place] Diastolic (mm Hg) 2015-07-26 23:43:00 Mem orial Peter Systolic (mm Hg) 2015-05-01 11:05:00 Jf rial [place] Diastolic (mm Hg) 2015-05-01 11:05:00 Mem orial [place] Heart Rate 2015-05-01 11:05:00 [facility] [place] Respitory Rate 2015-05-01 11:05:00 Memori al Peter Temperature Oral (F) 2015-05-01 11:05:00 97.8 F [facility] [place] Height 2015-05-01 08:54:00 172.72 cm [facility] [place] Systolic (mm Hg) 2015-05-01 08:54:00 Jf rial Peter Diastolic (mm Hg) 2015-05-01 08:54:00 Mem orial Peter Respitory Rate 2015-05-01 08:54:00 Memori al Peter Heart Rate 2015-05-01 08:54:00 [facility] [place] Temperature Oral (F) 2015-05-01 08:54:00 97.9 F [facility] [place] BMI Calculated 2015-05-01 08:54:00 Memori al [place] Weight 2015-05-01 08:54:00 [facility] Peter Heart Rate 2014-09-08 19:00:00 [facility] [place] Systolic (mm Hg) 2014-09-08 19:00:00 Jf rial [place] Diastolic (mm Hg) 2014-09-08 19:00:00 Mem orial Peter Respitory Rate 2014-09-08 19:00:00 Memori al [place] BMI Calculated 2014-09-08 16:01:00 Memori al Peter Weight 2014-09-08 16:01:00 [facility] [place] Systolic (mm Hg) 2014-09-08 16:01:00 Jf rial [place] Diastolic (mm Hg) 2014-09-08 16:01:00 Mem orial [place] Heart Rate 2014-09-08 16:01:00 [facility] Peter Respitory Rate 2014-09-08 16:01:00 Memori al [place] Temperature Oral (F) 2014-09-08 16:01:00 99.1 F [facility] Height 2014-09-08 16:01:00 172.72 cm [facility] [place] Respitory Rate 2014-04-16 22:48:00 Memori al [place] Heart Rate 2014-04-16 22:48:00 [facility] Peter Diastolic (mm Hg) 2014-04-16 22:48:00 Mem orial [place] Systolic (mm Hg) 2014-04-16 22:48:00 Jf rial [place] Temperature Oral (F) 2014-04-16 18:37:00 98.4 F [facility] [place] Heart Rate 2014-04-16 18:37:00 [facility] [place] Respitory Rate 2014-04-16 18:37:00 Memori al [place] Systolic (mm Hg) 2014-04-16 18:37:00 Jf rial Peter Diastolic (mm Hg) 2014-04-16 18:37:00 Mem orial [place] Weight 2014-04-16 16:41:00 [facility] [place] Height 2014-04-16 16:41:00 172.72 cm [facility] [place] BMI Calculated 2014-04-16 16:41:00 Memori al [place] Temperature Oral (F) 2014-04-16 16:41:00 98.3 F [facility] Peter Heart Rate 2014-04-16 16:41:00 [facility] Peter Respitory Rate 2014-04-16 16:41:00 Memori al [place] Systolic (mm Hg) 2014-04-16 16:41:00 Jf rial [place] Diastolic (mm Hg) 2014-04-16 16:41:00 Mem orial [place] Procedures Procedure Date / Time Performed Performing Clinician [facility] Appendectomy [facility] Cholecystectomy [facility] [place] Plan of Care Planned Activity Planned Date Details Comments Source Future Scheduled 2020-02-26 [facility] Influ[facility] 00:00:00 Seasonal Feb to July (>/= 19 yrs) [code = IMM Influenza Seasonal Oct to July (>/= 19 yrs)] Future Scheduled 2019-12-27 INFLUENZA VACCINE [place] [facility] Test 00:00:00 [code = INFLUENZA VACCINE] Future Scheduled 2016 Breast Cancer Scrn [facility] Test 00:00:00 (Yearly) [code = Breast Cancer Scrn (Yearly)] Future Scheduled 2006 Screening for [facility] Test 00:00:00 malignant neoplasm of cervix (procedure) [code = 163193898] Future Scheduled 2006 Screening for [facility] Test 00:00:00 malignant neoplasm of cervix (procedure) [code = 549519649] Future Scheduled 1997 Screening for [facility] Test 00:00:00 malignant neoplasm of cervix (procedure) [code = 478446891] Encounters Start End Encounter Admission Attending Care Care Encounter Source Date/Time Date/Time Type Type Clinicians Facility Department ID 2017-10-03 2017-10-04 Outpatient MHMISCHER MHMISCHER [id number] 09:36:00 23:59:59 05 2017-10-03 2017-10-04 Outpatient MHMISCHER MHMISCHER [id number] 09:36:00 23:59:59 05 2017-10-03 2017-10-03 Outpatient Nataliia, MHMISCHER MHMISCHER [id number] 16:00:00 16:00:00 Vic Limon 2017-10-03 2017-10-03 Outpatient Nataliia, M[facility]ER MHMIS[facility] [id number] 16:00:00 16:00:00 Vic Limon 2017-10-01 2017-10-02 Outpatient M[facility] MHM[facility] [id number] 10:23:00 23:59:59 2017-09-27 2017-09-28 Outpatient MHMISCHER MHMISCHER [id number] 13:30:00 23:59:59 03 2017-09-27 2017-09-28 Outpatient MHMISCHER MHMISCHER [id number] 13:28:00 23:59:59 02 2017-09-26 2017-09-26 Outpatient Rian Clark [id number] [facility] 16:16:00 16:16:00 Juma BILLY 2017-09-25 2017-09-25 Outpatient Juma 2.16.840. 2.16.840.1. [id number] 06:52:00 23:59:00 Rian [id number]. [id number] Baldo 3.615.71 5.71 2017-09-25 2017-09-25 Outpatient Juma 2.16.840. 2.16.840.1. [id number] 06:52:00 23:59:00 Rian [id number]. [id number] Baldo 3.615.71 5.71 2017-09-17 2017-09-18 Outpatient MHMISCHER MHMISCHER [id number] 11:20:00 23:59:59 2017-09-12 2017-09-13 Outpatient MHMISCHER MHMISCHER [id number] 15:47:00 23:59:59 00 2017-09-10 2017-09-10 Outpatient [facility] [id number] 00:00:00 00:00:00 [facility] 2017-08-10 2017-08-10 Outpatient [facility] [id number] [place] 00:00:00 00:00:00 [facility] 2017-08-02 2017-08-02 Outpatient [facility] [id number] [place] 00:00:00 00:00:00 [facility] 2017-07-31 2017-07-31 Outpatient [facility] [id number] [place] 00:00:00 00:00:00 [facility] 2017-07-19 2017-07-19 Outpatient [facility] [id number] [place] 00:00:00 00:00:00 [facility] 2017-06-15 2017-06-15 Outpatient [facility] [id number] [place] 10:14:46 10:14:46 [facility] 2017-06-13 2017-06-13 Outpatient [facility] [id number] [place] 00:00:00 00:00:00 [facility] 2017-05-26 2017-05-26 Emergency [facility] [id number] [place] 01:31:40 01:31:40 [facility] 2017-05-10 2017-05-10 Outpatient [facility] [id number] [place] 00:00:00 00:00:00 [facility] 2017-04-23 2017-04-23 Outpatient [facility] [id number] [place] 00:00:00 00:00:00 [facility] 2017-04-02 2017-04-02 Outpatient Marlon Harrell [facility] [id number] 00:55:00 03:27:00 Chris 10 2017-03-20 2017-03-20 Outpatient CORINE Rosario [facility] [id number] 08:16:00 09:45:00 Alber Graham 2017-03-06 2017-03-06 Emergency [facility] [id number] [place] 21:12:08 21:12:08 Health 2017-03-06 2017-03-06 Outpatient Fariba, [facility] [id number] 19:55:00 20:29:00 Jerome Augustine 2017-02-21 2017-02-21 Outpatient [facility] [id number] [place] 10:14:07 10:14:07 Health 2017-02-20 2017-02-20 Outpatient [facility] [id number] [place] 15:42:50 15:42:50 Health 2017-01-25 2017-01-25 Outpatient [facility] [id number] [place] 00:00:00 00:00:00 Health 2016-11-30 2016-11-30 Outpatient [facility] [id number] [place] 09:43:22 09:43:22 Health 2016-01-17 2016-01-17 Outpatient Hernandez Kameron [facility] [id number] 10:50:00 13:40:00 Zaire 2015-09-23 2015-09-23 Outpatient Muñoz, [facility] [id number] 19:40:00 21:15:00 Lenard 06 Vladimir 2015-08-09 2015-08-09 Outpatient Marlon Harrell [facility] [id number] 04:38:00 06:57:00 Chris 05 2015-07-26 2015-07-26 Outpatient Cortes, [facility] [id number] 17:40:00 20:33:00 Brittney Henry Faye 2015-05-01 2015-05-01 Outpatient Tony Mercedes [facility] [id number] 02:33:00 05:20:00 Sangita 03 2014-09-08 2014-09-08 Outpatient Jaya Lind [facility] [id number] 10:55:00 14:08:00 Anthony 2014-04-16 2014-04-16 Outpatient Shaq [facility] [id number] 10:07:00 17:32:00 Bryon Limon 00 Results Test Description Test Time Test Comments Results Result Comments Source DRUGS OF ABUSE SCREEN 2018-11-22 09:49:00 Test Item Value Reference Range Interpretation Comme nts TRICYCLICS QL SQN (test code NEGATIVE NEG TEST PERFORMED MANUALLY USING SYVA = TRIUR) RAPIDTEST TCA.C UTOFF >/= 1000 NG/ML A Positive drug screen result provides only a "PreliminaryPos itive" test result.If a confirmation of positive result is necessary, a mo respecific confirmatory te st must be ordered by the physician. Drug screens are performed for m edical (i.e. treatment)purpo ses only. Unconfirmed screening resul ts must not beused for non-medical purposes (e.g employment test ing). UR COCAINE (test code = NEGATIVE NEGATIVE CUTO FF >/= 300 NG/ML COCAU) UR THC CANABINOIDS QL SQN NEGATIVE NEGATIVE CU TOFF >/= 20 NG/ML (test code = CANU) UR AMPHETAMINE QL SQN (test NEGATIVE NEGATIVE CUTOFF >/= 500 NG/ML code = AMPHU) UR BARBITURATE QUAL (test NEGATIVE NEGATIVE CU TOFF >/= 200 NG/ML code = BARBQLU) UR BENZODIAZEPINE (test code POSITIVE NEGATIVE A CUTOFF >/= 200 NG/ML = BENZU) UR OPIATES QUAL (test code = POSITIVE NEGATIVE A CUTOFF >/= 2000 NG/ML OPIAQLU) UR PHENCYCLIDINE (PCP) (test NEGATIVE NEGATIVE CUTOFF >/= 25 NG/ML code = PHENCU) DRUGS OF ABUSE [id number] 09:42:00 Test Item Value Reference Range Interpretation Comments TRICYCLICS QL SQN (test NEGATIVE NEG TEST PERFORMED code = TRIUR) MANUALLY USING SYVA RAPIDTEST TCA.C UTOFF >/= 1000 NG/ML A Positive drug s creen result provides only a "PreliminaryPos itive" test result.If a confirmation of positive result is necessary, a morespecific confirmatory te st must be ordered by the physician. Drug screens are per formed for medical (i. e. treatment)purpo ses only. Unconfirm ed screening resul ts must not beused for non-medical pur poses (e.g employment testing). UR COCAINE (test code = NEGATIVE COCAU) UR THC CANABINOIDS QL NEGATIVE SQN (test code = CANU) UR AMPHETAMINE QL SQN NEGATIVE (test code = AMPHU) UR BARBITURATE QUAL NEGATIVE (test code = BARBQLU) UR BENZODIAZEPINE (test NEGATIVE code = BENZU) UR OPIATES QUAL (test NEGATIVE code = OPIAQLU) UR PHENCYCLIDINE (PCP) NEGATIVE (test code = PHENCU) UA RFLX MICR CULT IF [id number] 09:28:00 Test Item Value Reference Range Interpretation Comments UA COLOR (test code = Red Yellow COLU) UA APPEARANCE (test Cloudy Clear A code = APPU) UA GLUCOSE DIPSTICK 50 (1+) Negative A (test code = DGLUU) UA BILIRUBIN DIPSTICK Negative Negative (test code = BILU) UA KETONE DIPSTICK Negative mg/dL Negative (test code = KETU) UA SPECIFIC GRAVITY 1.026 <1.030 (test code = SGU) UA BLOOD DIPSTICK 3+ Negative A (test code = PATRICIA) UA PH DIPSTICK (test 6.0 5.0-8.0 code = ALBIN) UA PROTEIN DIPSTICK 100 (2+) mg/dL Negative A (test code = PROU) UA UROBILINOGEN 2.0 mg/dL Negative A DIPSTICK (test code = URO) UA NITRITE DIPSTICK Negative Negative (test code = LEONARDO) UA LEUKOCYTE ESTERASE NEGATIVE Negative DIPSTICK (test code = LEUU) UA WBC (test code = 11-20 /HPF <4-5 A >10 WBC/ HPF = WBCUR) PYURIA PRESENT URINE CULTURE PROCESS ED UA RBC (test code = >100 /HPF <4-5 A RBCU) UA BACTERIA (test 1+ /HPF None-Rare A code = BACU) UA SQUAMOUS CELLS >25 (MANY) /HPF 0-5 (RARE) A (test code = SQU) UA MUCUS (test code = 2+ /LPF <Rare A MUCU) SOURCE OF URINE: CLEAN CATCHIndication for culture: Dysuria/FrequencyUR HCG [id number] 09:28:00 Test Item Value Reference Range Interpretation Comments UR HCG QUAL (test code = HCGQLU) NEGATIVE NEGATIVE SOURCE OF URINE: CLEAN CATCHIndication for culture: Dysuria/FrequencyUA RFLX MICR CULT IF [id number] 09:25:00 Test Item Value Reference Range Interpretation Comments UA COLOR (test code = COLU) YELLOW UA APPEARANCE (test code = APPU) CLEAR UA GLUCOSE DIPSTICK (test code = MG/DL NEGATIVE DGLUU) UA BILIRUBIN DIPSTICK (test code = NEGATIVE BILU) UA KETONE DIPSTICK (test code = KETU) MG/DL NEGATIVE UA SPECIFIC GRAVITY (test code = SGU) 1.000-1.030 UA BLOOD DIPSTICK (test code = PATRICIA) NEGATIVE UA PH DIPSTICK (test code = ALBIN) 4.5-8.5 UA PROTEIN DIPSTICK (test code = PROU) MG/DL NEGATIVE UA UROBILINOGEN DIPSTICK (test code = EU/dL <=1.0 URO) UA NITRITE DIPSTICK (test code = LEONARDO) NEGATIVE UA LEUKOCYTE ESTERASE DIPSTICK (test NEGATIVE code = LEUU) UA WBC (test code = WBCUR) /HPF 0-3 UA RBC (test code = RBCU) /HPF 0-3 UA BACTERIA (test code = BACU) /HPF NEGATIVE SOURCE OF URINE: CLEAN CATCHIndication for culture: Dysuria/FrequencyUR HCG [id number] 09:25:00 Test Item Value Reference Range Interpretation Comments UR HCG QUAL (test code = HCGQLU) NEGATIVE NEGATIVE SOURCE OF URINE: CLEAN CATCHIndication for culture: Dysuria/FrequencyBASIC METABOLIC [id number] 20:23:00 Test Item Value Reference Range Interpretation Comments SODIUM (test code = 140 mmol/L 137-145 N NA) POTASSIUM (test code 3.6 mmol/L 3.4-5.0 N = K) CHLORIDE (test code = 104 mmol/L 98-107 N CL) CARBON DIOXIDE (test 29 mmol/L 22-30 N code = CO2) GLUCOSE (test code = 94 mg/dL 74-106 N GLU) BLOOD UREA NITROGEN 7 mg/dL 7-17 N (test code = BUN) GLOMERULAR FILTRATION 141 >60 The es timated RATE (test code = glomerular filtration GFR) rate is compute d usingpatient ra ce, age (>18), sex, and serum creatinine. If anyof the needed data elements are mi ssing the Laboratory cannot compute an chip mation of the glomerul ar filtration rate . CREATININE (test code 0.6 mg/dL 0.5-1.0 N = CREAT) CALCIUM (test code = 9.7 mg/dL 8.4-10.2 N CA) LIVER FUNCTION [id number] 20:23:00 Test Item Value Reference Range Interpretation Comments TOTAL PROTEIN (test 7.6 g/dL 6.3-8.2 N code = PROT) ALBUMIN (test code = 4.3 g/dL 3.5-5.0 N ALB) BILIRUBIN TOTAL (test 0.9 mg/dL 0.2-1.3 N code = BILT) BILIRUBIN CONJUGATED 0 mg/dL 0-0.3 N ~~~~~~~ ~~~~~~~~~~~~~~ (test code = BILCON) ~~~~~~~ ~~~~~~~~~~~~~~ ~~~~~~~~~~~~~~~ ~~~CON JUGATED BILIRUB IN IS THE REPLACEMENT ASSAY FOR DIRECTBILIRUBIN .~~~~~ ~~~~~~~~~~~~~~~ ~~~~~~ ~~~~~~~~~~~~~~~ ~~~~~~ ~~~~~~~~~~~~~ BILIRUBIN UNCONJUGATED 0.5 mg/dL 0-1.1 N (test code = BILUNC) SGOT/AST (test code = 29 U/L 15-46 N AST) SGPT/ALT (test code = < 13 U/L 13-69 L ALT) ALKALINE PHOSPHATASE 61 U/L 38-126 N (test code = ALKP) [id number] 20:23:00 Test Item Value Reference Range Interpretation Comments ALCOHOL (test code = < 10 mg/dL <10 ALC) ~~~~~~~~~~~~~~~ ~~~~~~~ ~~~~~~~~~~~~~~~ ~~~~~~~ ~~~~~~ RESU LTS ARE TO BE USED FOR MEDICAL PURPOSES ONLY.F OR LEGAL PURPOSES THE SPECIMEN MUST B E COLLECTED BY A CHAINOF CUSTODY. LEGAL TESTING IS NOT PERFORME D BY THIS FACILITY. ~~~~~~~~~~~~~~~ ~~~~~~~ ~~~~~~~~~~~~~~~ ~~~~~~~ ~~~~~~ CBC W/AUTO [id number] 20:10:00 Test Item Value Reference Range Interpretation Comments WHITE BLOOD CELL (test code = 6.3 x10 3/uL 5.0-12.0 N WBC) RED BLOOD CELL (test code = 3.61 x10 6/uL 4.20-5.40 L RBC) HEMOGLOBIN (test code = HGB) 11.9 g/dL 12.0-16.0 L HEMATOCRIT (test code = HCT) 35.7 % 36.0-46.0 L MEAN CELL VOLUME (test code = 99 fL 81-99 N MCV) MEAN CELL HGB (test code = MCH) 33.0 pg 27-31 H MEAN CELL HGB CONCENTRATION 33.3 g/dL 33-37 N (test code = MCHC) RED CELL DISTRIBUTION WIDTH 12.5 % 11.5-15.5 N (test code = RDW) PLATELET COUNT (test code = 265 x10 3/uL 130-400 N PLT) MEAN PLATELET VOLUME (test code 9.2 fL 9.4-16.4 L = MPV) NEUTROPHIL % (test code = NT%) 72.5 % 43-65 H IMMATURE GRANULOCYTE % (test 0.2 % 0.0-2.0 N code = IG%) LYMPHOCYTE % (test code = LY%) 21.0 % 20.5-45.5 N MONOCYTE % (test code = MO%) 5.4 % 5.5-11.7 L EOSINOPHIL % (test code = EO%) 0.6 % 0.9-2.9 L BASOPHIL % (test code = BA%) 0.3 % 0.2-1.0 N NUCLEATED RBC % (test code = 0.0 % 0-1.0 N NRBC%) NEUTROPHIL # (test code = NT#) 4.59 x10 3/uL 2.2-4.8 N IMMATURE GRANULOCYTE # (test 0.01 x10 3/uL 0-0.03 N code = IG#) LYMPHOCYTE # (test code = LY#) 1.33 x10 3/uL 1.3-2.9 N MONOCYTE # (test code = MO#) 0.34 x10 3/uL 0.3-0.8 N EOSINOPHIL # (test code = EO#) 0.04 x10 3/uL 0.0-0.2 N BASOPHIL # (test code = BA#) 0.02 x10 3/uL 0.0-0.1 N CHEM [id number] 07:24:56812Cfgaigxe [facility] [id number] 07:24:00Negative (04/02/17 1:24 AM)[facility] [id number] 07:24:0015 *ABN*(04/02/17 1:24 AM)[facility] [id number] 07:24:00Negative (04/02/17 1:24 AM)[facility] [id number] 07:24:00Small *ABN*(04/02/17 1:24 AM)[facility] [id number] 07:24:00 Test Item Value Reference Range Interpretation Comments UA Spec Grav (test code = UA Spec 1.025 1 Grav) [facility] [id number] 07:24:00Trace *ABN*(04/02/17 1:24 AM) [facility] [id number] 07:24:00 Test Item Value Reference Range Interpretation Comments UA pH (test code = UA pH) 6.0 1 5.0-8.0 [facility] [id number] 07:24:00Negative (04/02/17 1:24 AM) [facility] [id number] 07:24:00Negative *NA*(04/02/17 1:24 AM) [facility] [id number] 07:24:000.2[facility] [id number] 07:24:00Yellow *NA*(04/02/17 1:24 AM)[facility] [id number] 07:24:00Slight Cloudy (04/02/17 1:24 AM)[facility]annCHEM [id number] 07:19:99278Tzwbdpgw HermannCHEM PAACN4649-00-15 07:19:009.0 [facility] VYMWR4324-01-78 07:19:007.3[facility]annCHEM PANEL 2017-04-02 07:19:003.9[facility]annCHEM TIKXX3480-06-44 07:19:70083Abisslqk HermannCHEM LWXVV0581-96-31 07:19:0025[facility]annCHEM EVZAD8073-51-66 07:19:75029Qypaixmp HermannCHEM AGZNJ7414-31-40 07:19:003.2[facility]annCHEM YPJMB9447-25-25 07:19:0011[facility]annCHEM OIHFJ0694-98-37 07:19:0044 [facility]CHE[facility] LEFDK2870-00-27 07:19:000.9[facility]annCHEM PANEL 2017-04-02 07:19:0018[facility]annCHEM [id number] 07:19:0011[facility]annCHEM GCCSW9821-96-07 07:19:000.80[facility]annCHEM XVVNA3006-54-00 07:19:26466Lfydzdvp HermannCHEM NYYZK2751-70-82 07:19:0014[facility]annCHEM HVLSW9024-51-81 07:19:003.4[facility]annCHEM BTBEZ9471-13-78 07:19:001.1 [facility]CHE[facility] WMWCT2829-51-16 07:19:0010.2[facility]annHEMATOLOGY 2017-04-02 07:19:002.0[facility] VsffiuvDQVCBTEQXF2016-09-34 07:19:000.1[facility] JhcpxxgXIDHNTGHIJ1253-28-82 07:19:000.5[facility] ObdjmvbWBUIOOYIGZ7878-13-54 07:19:0022.1[facility] XnahazoFFOHKHWYWG8729-51-43 07:19:005.9[facility] LVJKMMAGPX6417-95-75 07:19:000.6[facility] IdscxtlWBCSKUFKNH4520-82-07 07:19:005.3 [facility] LwusseoCEKZSQCHAV6984-61-40 07:19:000.6[facility]annHEMATOLOGY 2017-04-02 07:19:0065.8[facility] ReqbjepCVTZOIJNMO3022-71-27 07:19:006.2[facility] YcqdmlkLMUNYPKMFK1507-59-11 07:19:007.2[facility] JdmkpcuSMHTGZILUG3750-67-66 07:19:24190Biyhwrfh BmxitqkIVGXVZMCMQ9688-89-50 07:19:0013.2[facility] QYXSUXXXVH5132-45-42 07:19:0034.7[facility] EjbfyqdKDOVXLSZWZ9511-70-46 07:19:00 Test Item Value Reference Range Interpretation Comments MCH (test code = MCH) 34.1 pg 27.0-31.0 [facility] KtjipjkYLVTFPNMGA9321-68-65 07:19:0098.5[facility]annHEMATOLOGY 2017-04-02 07:19:0034.1[facility] FntrlsvUSNEAOIRJM2356-65-25 07:19:0011.8[facility] VjjmzolXIMHYTYSLW4194-81-83 07:19:003.46[facility] WhuapaeWUOWTRAPNK5660-13-26 07:19:009.0[facility] ZCIFM2714-85-82 01:04:00Clear (09/23/15 8:04 PM)[facility] KTLTJ9326-92-78 01:04:00Yellow *NA*(09/23/15 8:04 PM)[facility] [id number] 01:04:00 Test Item Value Reference Range Interpretation Comments UA pH (test code = UA pH) 7.0 1 5.0-8.0 [facility] [id number] 01:04:00 Test Item Value Reference Range Interpretation Comments UA Spec Grav (test code = UA Spec 1.020 1 Grav) [facility] [id number] 01:04:00Negative *NA*(09/23/15 8:04 PM) [facility] VDGSO5255-19-70 01:04:000.2[facility] XFSGG9754-79-30 01:04:00Negative (09/23/15 8:04 PM)[facility] SYLJM4526-70-48 01:04:00Negative (09/23/15 8:04 PM)[facility] MQYTX7025-93-72 01:04:00Negative (09/23/15 8:04 PM)[facility] PJWTT8409-88-07 01:04:00Performed (09/23/15 8:04 PM)[facility] CVAZI6814-96-97 01:04:00None Seen (09/23/15 8:04 PM)[facility] UMKBE5253-77-11 01:04:00None Seen (09/23/15 8:04 PM)[facility] PRFLP2608-85-18 01:04:00None Seen (09/23/15 8:04 PM)[facility] TGTZP7109-92-21 01:04:00None Seen (09/23/15 8:04 PM)[facility] CHEM 2015-09-24 01:04:00Negative (09/23/15 8:04 PM)[facility]annVIRAL - SEROLOGY 2015-08-09 10:25:00Negative (08/09/15 5:25 AM)[facility] - SEROLOGY 2015-08-09 10:25:00Negative (08/09/15 5:25 AM)[facility] UvqiwlkGFZTX3175-84-56 09:49:00Negative (05/01/15 3:49 AM)[facility] OqclhmyIBIFBDDIWRRO6115-49-47 17:18:0010.8[facility] HecawwoCYIYKKJDGCMD4397-67-58 17:18:0021[facility] VZRMIHGBUKEA8295-08-73 17:18:003.8[facility] CqtsflgIZANGEFNVZOW0936-28-18 17:18:000.9[facility] MlxqzcmGEXAZPAWCCSZ5027-58-01 17:18:06165Druazzty [place] VRVMFJYZSIRD9020-80-39 17:18:000.5[facility] PjeohjnXULWKLFMWEDU2917-29-53 17:18:0047[facility] VdrqnmsYMMCNDXHQJWG7109-87-47 17:18:0019[facility] WYAAROOJKEQJ0125-26-09 17:18:003.3[facility] PpdecniSIUXZEAQCZOW8179-17-62 17:18:0010[facility] VggbxgzHLXUBYWKQPVT8209-32-05 17:18:008.9[facility] FPDBYVRBBZLV9701-67-37 17:18:0089[facility] BbaowgiTZOSIZAHYJPG2552-49-10 17:18:00 15[facility] ZrejhxoOIWPUAQYEJTY5539-75-39 17:18:44179Xfmcgutf HermannELECTROLYTES 2014-09-08 17:18:0028[facility] EedfddwTHMJFLVICSNT9800-50-28 17:18:007.1[facility] YvivbsxCQRHNMOAJMEU8901-29-26 17:18:003.8[facility] DjyaspaORAEUNNMGIRO9693-89-93 17:18:000.7[facility] DgvbfgpTYAAKATDHJSJ3407-53-38 17:18:30570Hdvguadm Peter PZJOIFKKXG9016-41-83 17:18:003.0[facility] EsqepozBLCDOXVQGH6203-50-98 17:18:00 86.5[facility] BjteqjbMWZVPMFYNY5401-79-33 17:18:0010.0[facility]annHEMATOLOGY 2014-09-08 17:18:000.3[facility] DvayxlkRQQTOEAHTQ3599-20-23 17:18:001.1[facility] LcfhvwrLJTUWMWNDJ5539-23-67 17:18:000.2[facility] LmfhcrsMIOQRJYXCF5730-98-36 17:18:009.4[facility] CmpwzspSEJMRHFQXR3161-71-57 17:18:000.3[facility] HNKOIOIWSJ9708-86-94 17:18:53653Bwkcfpge ExnoiqqGYWWLIIWDX7038-47-75 17:18:00 34.8[facility] XepytibQWJSGCZMJI4073-76-84 17:18:0012.9[facility]annHEMATOLOGY 2014-09-08 17:18:006.9[facility] SzflyovJVGCDWIUXW6308-04-95 17:18:0093.1[facility] FxykenjMKNDYGCILG2750-08-61 17:18:00 Test Item Value Reference Range Interpretation Comments MCH (test code = MCH) 32.4 pg 27.0-31.0 [facility] BhaffiaSAAAPBJWEA4821-14-30 17:18:0031.4[facility]annHEMATOLOGY 2014-09-08 17:18:0010.8[facility] FgvmvysOGWFMPSHUQ0193-28-96 17:18:0010.9[facility] RjwmihaSLNYBAJIGS7457-95-05 17:18:003.37[facility] STOOL 2014-09-08 17:18:00None Seen (09/08/14 12:18 PM)[facility] STOOL 2014-09-08 17:18:00None Seen (09/08/14 12:18 PM)[facility] STOOL 2014-09-08 17:18:000.2[facility] VEFOD5926-81-11 17:18:00Negative (09/08/14 12:18 PM)[facility] CUOMX6486-68-43 17:18:00Negative *NA*(09/08/14 12:18 PM)[facility] BFRCQ6171-72-54 17:18:00Trace *ABN*(09/08/14 12:18 PM)[facility] VGNLI3656-44-64 17:18:00 Negative (09/08/14 12:18 PM)[facility] SUVSK5032-63-45 17:18:00 Negative (09/08/14 12:18 PM)[facility] XAJUV4771-28-38 17:18:00 Negative (09/08/14 12:18 PM)[facility] RRTYW3692-05-65 17:18:00 Yellow *NA*(09/08/14 12:18 PM)[facility] DUHWD7816-84-18 17:18:00 Negative (09/08/14 12:18 PM)[facility] PSKLY8195-05-31 17:18:00 Test Item Value Reference Range Interpretation Comments UA pH (test code = UA pH) 6.0 1 5.0-8.0 [facility] CDXJK5758-62-69 17:18:00Clear (09/08/14 12:18 PM) [facility] CJUSK0861-33-13 17:18:00>=1.030 *ABN*(09/08/14 12:18 PM)[facility] DGZX2858-32-15 17:18:00Negative (09/08/14 12:18 PM) [facility] [id number] 18:20:31269Gjzpgbxj HermannCHEM PANEL 2014-04-16 18:20:008.1[facility] QMGRC2899-59-83 18:20:0027[facility] MOIRK9282-45-81 18:20:009.4[facility]CHE[facility] GWDSR4849-27-43 18:20:0044[facility] FLGSG6464-43-86 18:20:004.2[facility]annCHE[facility] WNXAM7816-30-76 18:20:0013[facility]CHE[facility] IUYDS4876-72-13 18:20:0025 [facility] PGMEN8138-90-91 18:20:001.1[facility]annCHE[facility] PANEL 2014-04-16 18:20:95581Zpsfrzek HermannCHEM CMJKM7446-27-18 18:20:000.8[facility]annCHE[facility] CSAQF4181-42-06 18:20:98769Ylsxyvud HermannCHEM TVRMW1918-88-96 18:20:003.9[facility]CHE[facility] VFXRZ6295-48-96 18:20:0090[facility]CHE[facility] IXWTI1414-22-39 18:20:0011[facility]CHE[facility] ICNRR4746-50-73 18:20:001.1 [facility] ZSCWC5620-00-07 18:20:0011.9[facility]annCHEM PANEL 2014-04-16 18:20:0014[facility]annCHE[facility] SCLUC9618-37-32 18:20:003.9[facility] PksfnnfCNEVMAYFVE1175-96-46 18:20:002.3[facility] BzfgifrKTBWZLGPBC5888-16-51 18:20:0050.7[facility] WoauxizXGNIZFEPMH5592-93-32 18:20:006.2[facility] ITOHMSRZCI5438-16-39 18:20:005.8[facility] NbsewzuUZRJCALXVV6040-38-41 18:20:003.2 [facility] VrjgtvnHFIMMVBUBV3369-43-29 18:20:000.7[facility]annHEMATOLOGY 2014-04-16 18:20:000.4[facility] IhpbydtQTMECTFLRT0328-87-67 18:20:000.4[facility] IawtyfgIUFERUEGYI2683-49-55 18:20:0036.6[facility] YkskfqsINLUXCYLLT7704-39-70 18:20:007.1[facility] MpdohhqMQANNCQJSR8089-29-80 18:20:25052Olhjzxwu Peter FLJTQFGWBR6078-45-58 18:20:003.75[facility] GlfrzhoQSLROCKPHF9558-94-19 18:20:00 12.4[facility] KqzvxjrNWNQJSSXIN9735-29-38 18:20:0034.5[facility]annHEMATOLOGY 2014-04-16 18:20:00 Test Item Value Reference Range Interpretation Comments MCH (test code = MCH) 32.9 pg 27.0-31.0 [facility] MswlrvsMGKUAUPNWG9840-61-49 18:20:0012.6[facility]annHEMATOLOGY 2014-04-16 18:20:006.2[facility] LyyvogxDZKHAFOEJK1571-77-87 18:20:0035.8[facility] FcxyzcmECXESYRPKR9928-16-18 18:20:0095.5[facility] HermannTHYROID AYEEE9767-10-69 18:20:000.373[facility] WMSPO4082-13-74 18:20:00Negative (04/16/14 12:20 PM)[facility] HEDNY5280-79-12 18:20:00Small *ABN*(04/16/14 12:20 PM)[facility] ESOVE1872-38-80 18:20:00Amber *ABN*(04/16/14 12:20 PM)[facility] ONPVM5823-10-96 18:20:00 Negative (04/16/14 12:20 PM)[facility] GCZGH0050-08-92 18:20:00 Cloudy *ABN*(04/16/14 12:20 PM)[facility] [id number] 18:20:00 Test Item Value Reference Range Interpretation Comments UA Spec Grav (test code = UA Spec 1.010 1 Grav) [facility] [id number] 18:20:00Negative *NA*(04/16/14 12:20 PM)[facility] ZKWWK0393-93-42 18:20:00Trace *ABN*(04/16/14 12:20 PM)[facility] [id number] 18:20:00 Test Item Value Reference Range Interpretation Comments UA pH (test code = UA pH) 6.0 1 5.0-8.0 [facility] BVWLX0433-57-34 18:20:000.2[facility] EKBTV4771-04-42 18:20:00Negative *NA*(04/16/14 12:20 PM)[facility] FZMSN7850-34-17 18:20:00Large *ABN*(04/16/14 12:20 PM)[facility]
--- OUTSIDE RECORDS SUMMARY | 2020-05-04 17:51 | XMS REPORT | Continuity of Care Document ---
:1975 Author Organization [email or web address] Information [employer] Care Team Providers Name Role Phone [employer] Unavailable Un available Problems Problem Status Onset Classification Date Comments Sourc e Date Reported Unspecified 04/02/20 04/05/2017 abdominal pain 17 [place] ABD. PAIN Active 04/01/20 17 [facility] Disorder of teeth 03/20/20 03/23/2017 [place] and supporting 17 Medic al structures, Center unspecified HIGH BLOOD Active 03/20/20 [place] PRESSURE/TOOTHACHE 17 [facility] TOOTH ACHE Active 03/06/20 17 [facility] Discharge 01/17/20 01/20/2016 Diagnosis: Viral 16 [place] syndrome BODYACHES AND Active 01/17/20 HEADACHE 16 [facility] Discharge 09/23/19 09/26/2015 Diagnosis: Chronic 16 [place] back pain ABSCESS Active 09/23/19 16 [facility] Discharge 08/09/19 08/12/2015 Diagnosis: 16 [place] Influenza N/V Active 08/08/19 16 [facility] Discharge 07/26/19 07/29/2015 Diagnosis: 16 [facility] Left-sided low back pain with left-sided sciatica LOWER BACK, LEG Active 07/26/19 PAIN 16 [facility] Discharge 05/01/20 05/04/2015 Diagnosis: Sore 15 [place] throat Discharge 05/01/20 05/04/2015 Diagnosis: Acute 15 [place] upper respiratory infection Discharge 05/01/20 05/04/2015 Diagnosis: Acute 15 [place] viral syndrome VOMITING/ EAR Active 05/01/20 ACHE/ FEVER 15 [place] Discharge 09/09/19 09/10/2014 Diagnosis: Acute 15 [place] back pain Discharge 09/09/19 09/10/2014 Diagnosis: Acute 15 [place] sinusitis Discharge 09/09/19 09/10/2014 Diagnosis: Acute 15 [place] URI POSS. KIDNEY STONE Active 05/18/20 H 14 [facility] Discharge 04/16/20 04/19/2014 Diagnosis: 14 [place] Lymphadenopathy Discharge 04/16/20 04/19/2014 Diagnosis: 14 [place] Enlarged thyroid Discharge 04/16/20 04/19/2014 Diagnosis: Pain in 14 [place] lower back LUMP IN Active 04/16/20 THROAT/BACK PAIN 14 [place] COUGH/CONGESTION Active 09/09/19 14 [place] Acute depression Resolved Problem 10/07/2017 Mi teresita (disorder) [facility] [place], [facility] H OPID [place] Anxiety (finding) Resolved Problem 10/07/2017 M ischer Neuro[facility] [place], M H OPID [place] Hypertensive Resolved Problem 10/07/2017 Mische r disorder, systemic N euro, arterial [place] (disorder) [facility] [place], M H OPID [place] Ulcerative colitis Resolved Problem 10/07/2017 [place] (disorder) [facility] [place], M H OPID [place] Lumbago with 10/05/2017 OPI D sciatica, left Summe [place] side [place] Other chronic pain 10/05/2017 OPID [place] [facility] Other symptoms and 10/05/2017 OPID signs involving Summ er the [place] musculoskeletal system Other disturbances 10/05/2017 OPID of skin sensation Lemus mmer [place] Body mass index Active Problem 09/28/2017 Jeffery tillo (BMI) of 25.0-25.9 C ommunity in adult Numbness of left Active Problem 09/28/2017 [place] [facility] Community Medications Medication Details Route Status Patient Ordering Order Source Instructions Provider Date tramadol 50 mg 50 mg = 1 Active oral tablet tab, PO, 2016 [facility] BID, X 15 day, # 30 tab, 0 Refill(s) [place] 5/325 oral 1 tab, Inactive tablet Route: PO, 2016 [facility] Dosing Weight 78.773, kg, Q6H, STAT, Start date: 04/02/17 2:03:00 SAUTE CHEF, Duration: 30 day, Stop date: 05/02/17 0:00:00 SAUTE CHEF Saline Flush 0.9% Notes: (Same Inactive as: BD 2016 [facility] Posiflush) Amlodipine 5 MG 5 mg = 1 Active Lizette s Oral Tablet tab, PO, 2017 [facility] [Norvasc] Daily, # 14 Center tab, 1 Refill(s) Epinephrine 0.01 Notes: (Same Inactive [place] MG/ML / Lidocaine as: 2016 Medica l Hydrochloride 10 Xylocaine Cente r MG/ML Injectable w/Epinephrin Solution e) Bupivacaine Notes: (Same Inactive Yao as Hydrochloride 2.5 As: 2016 Medica l MG/ML Injectable Marcaine, Cente r Solution Sensorcaine) 200 ACTUAT 1 puff, Active Albuterol 0.09 INHALATION, 2015 [place] MG/ACTUAT Metered Q6H, PRN for Dose Inhaler wheezing, # 9 gm, 0 Refill(s) tramadol 50 mg = 1 Active hydrochloride 50 tab, PO, 2015 [place] Oral Tablet BID, X 15 day, # 30 tab, 0 Refill(s) Oseltamivir 75 MG 75 mg, PO, Active Oral Capsule Q12H, X 5 2015 [Tamiflu] day, # 10 cap, 0 Refill(s) Zofran ODT Notes: (Same Inactive as: Zofran 2015 [facility] ODT) Ketorolac 30 mg, Inactive Route: IM, 2015 Drug form: INJ, ONCE, Dosing Weight 69.5, kg, Priority: STAT, Start date: 08/09/15 5:10:00, Stop date: 08/09/15 5:10:00 Acetaminophen 325 1 tab, Inactive MG / Hydrocodone Route: PO, 2015 [place] Bitartrate 5 MG Drug Form: Oral Tablet TAB, Dosing [[place] 5/325] Weight 69.5, kg, ONCE, STAT, Start date: 08/09/15 5:10:00, Stop date: 08/09/15 5:10:00 naproxen 500 mg 500 mg = 1 Active oral tablet tab, PO, 2015 Q12H, PRN Pain, # 20 tab, 0 Refill(s) {21 See Active (Methylprednisolo Instructions 2015 [place] ne 4 MG Oral , PO, Take Tablet [Medrol]) by mouth as } Pack [Medrol directed on Dosepak] label., X 6 day, # 1 Pack, 0 Refill(s) Cyclobenzaprine 10 mg = 1 Active hydrochloride 10 tab, PO, 2015 [place] [facility] MG Oral Tablet TID, PRN for [Flexeril] spasm, X 7 day, # 21 tab, 0 Refill(s) Solu-Medrol Notes: (Same Inactive as:Solu-MEDR 2016 [facility] OL, A-Methapred) ketOROLAC 30 4 days Inactive mg/mL injectable 2015 [facility] st solution MEDICATION WASTE Product Size: 30 mg Product Wasted: 0 mg Robitussin-AC 5 ml, PO, Active oral syrup Q6H, PRN for 2014 [facility] t cough and congestion, X 5 day, # 100 mL, 0 Refill(s) predniSONE 20 mg 40 mg = 2 Active oral tablet tab, PO, 2014 [facility] Daily, X 5 day, # 10 tab, 0 Refill(s) Ibuprofen Notes: (Same Inactive as: Motrin) 2014 "Do Not Crush" Take with food. Prednisone Notes: Take Inactive with food. 2014 [facility] Promethazine VC 5 ml, PO, Active with Codeine oral Q4H, PRN for 2014 [place] syrup cough, # 120 mL, 0 Refill(s) pseudoephedrine 60 mg = 1 Active 60 mg oral tablet tab, PO, 2014 [place] Q6H, PRN Congestion, # 20 tab, 0 Refill(s) Amoxicillin 875 875 mg = 1 Active MG / Clavulanate tab, PO, 2013 [facility] ast 125 MG Oral BID, # 20 Tablet [Augmentin tab, 0 875-mg] Refill(s) Acetaminophen 300 1 - 2 tab, Active MG / Codeine PO, Q4H, 2013 [facility] Phosphate 30 MG Pain, # 10 Oral Tablet tab, 0 [Tylenol with Refill(s) Codeine #3] Acetaminophen 325 Notes: (Same Inactive MG / Hydrocodone as: [place] 2013 [place] Bitartrate 5 MG 325/5) Do Oral Tablet not exceed [[place] 5/325] 4gm/day of acetaminophe n. Ketorolac 60 mg, Inactive Route: IM, 2013 [facility] Drug form: INJ, ONCE, Dosing Weight 76.42, kg, Priority: STAT, Start date: 04/16/14 12:17:00, Stop date: 04/16/14 12:17:00 Orphenadrine 60 mg, Inactive Route: IM, 2013 ONCE, Dosing Weight 76.42, kg, Priority: STAT, Start date: 04/16/14 12:17:00, Stop date: 04/16/14 12:17:00 Allergies, Adverse Reactions, Alerts No Known Medication Allergies Immunizations No Data Provided for This Section Results Order Name Results Value Reference Date Interpretation Comments [place] Range CHEM PANEL Lipase Lvl 267 73 - 393 04/02 [place] URINE AND UA Leuk Est Negative Negative 04/02 [facility] (04/02/17 1:24 AM) [place] URINE AND UA Ketones 15 Negative 04/02 STOOL *ABN* /2016 [facility] (04/02/17 1:24 AM) URINE AND UA Glucose Negative Negative 04/02 [facility] (04/02/17 1:24 AM) [place] URINE AND UA Blood Small Negative 04/02 STOOL *ABN* [facility] (04/02/17 1:24 AM) URINE AND UA Spec Grav 1.025 <=1.030 04/02 STOOL [place] URINE AND UA Protein Trace Negative 04/02 STOOL *ABN* /2016 [facility] (04/02/17 1:24 AM) URINE AND UA pH 6.0 5.0 - 8.0 04/02 [facility]OL [place] URINE AND UA Nitrite Negative Negative 04/02 [facility] (04/02/17 1:24 AM) [place] URINE AND UA Bili Negative Negative 04/02 STOOL *NA* /2016 [facility] (04/02/17 1:24 AM) URINE AND UA 0.2 0.1 - 1.0 04/02 STO[facility] Urobilinogen /2016 [facility] URINE AND UA Color Yellow Yellow 04/02 STO[facility] *NA* /2016 [facility] (04/02/17 1:24 AM) URINE AND UA Turbidity Slight Cloudy Clear 04/02 [facility] (04/02/17 1:24 AM) /2017 [place] URINE AND UA Bacteria Occasional None Seen 04/02 [facility] /HPF /HPF /2016 [place] URINE AND UA Sq Epi Occasional Few /LPF 04/02 [facility] /LPF [place] URINE AND UA RBC 3-5 /HPF 0 - 2 04/02 [facility] [place] URINE AND UA WBC 0-2 /HPF 0 - 5 04/02 [facility]OL [place] URINE AND UA Mucus Few /LPF None Seen 04/02 STO[facility] /LPF [facility] CHEM PANEL eGFR 106 04/02 [facility] Comment: The [facility] eGFR is calculated using the CKD-EPI formula. In most young, healthy individuals the eGFR will be >90 mL/min/1.73m2 . The eGFR declines with age. An eGFR of 60-89 may be normal in some populations, particularly the elderly, for whom the CKD-EPI formula has not been extensively validated. Use of the eGFR is not recommended in the following populations:< br/>
Clarice viduals with unstable creatinine concentration s, including patients and those with serious co-morbid conditions.<b r/>
Patie nts with extremes in muscle mass or diet.

The data above are obtained from the National Kidney Disease Education Program (NKDEP) which additionally recommends that when the eGFR is used in patients with extremes of body mass index for purposes of drug dosing, the eGFR should be multiplied by the estimated BMI. CHEM PANEL Calcium Lvl 9.0 8.5 - 10.5 04/02 [facility] CHEM PANEL Total 7.3 6.4 - 8.4 04/02 Protein [facility] CHEM PANEL Albumin Lvl 3.9 3.5 - 5.0 04/02 [place] CHEM PANEL Chloride Lvl 107 95 - 109 04/02 [place] CHEM PANEL CO2 25 24 - 32 04/02 [place] CHEM PANEL Sodium Lvl 139 135 - 145 04/02 [place] CHEM PANEL Potassium 3.2 3.5 - 5.1 04/02 Lvl [place] CHEM PANEL AST 11 0 - 37 04/02 [place] CHEM PANEL Alk Phos 44 39 - 136 04/02 [facility] CHEM PANEL Bili Total 0.9 0.2 - 1.3 04/02 [place] CHEM PANEL ALT 18 0 - 65 04/02 [place] CHEM PANEL BUN 11 7 - 22 04/02 [place] CHEM PANEL Creatinine 0.80 0.50 - 11 MH Lvl 1.40 /2016 [place] CHEM PANEL Glucose Lvl 103 70 - 99 04/02 [place] CHEM PANEL B/C Ratio 14 6 - 25 04/02 [place] CHEM PANEL Globulin 3.4 2.7 - 4.2 04/02 [place] CHEM PANEL A/G Ratio 1.1 0.7 - 1.6 04/02 [place] CHEM PANEL AGAP 10.2 10.0 - 04/02 MH 20.0 /2016 [place] HEMATOLOGY Lymphocytes 2.0 1.0 - 5.5 11 MH # /2016 [place] HEMATOLOGY Basophils # 0.1 0.0 - 0.2 04/02 [place] HEMATOLOGY Eosinophils 0.5 0.0 - 0.5 04/02 MH # /2016 [place] HEMATOLOGY Lymphocytes 22.1 20.0 - 04/02 MH 40.0 [place] HEMATOLOGY Segs-Bands # 5.9 1.5 - 8.1 04/02 [place] HEMATOLOGY Basophils 0.6 0.0 - 1.0 04/02 [place] HEMATOLOGY Eosinophils 5.3 0.0 - 4.0 04/02 [place] HEMATOLOGY Monocytes # 0.6 0.0 - 0.8 04/02 [place] HEMATOLOGY Segs 65.8 45.0 - 04/02 MH 75.0 /2016 [place] HEMATOLOGY Monocytes 6.2 2.0 - 12.0 04/02 [place] HEMATOLOGY MPV 7.2 7.4 - 10.4 04/02 [place] HEMATOLOGY Platelet 291 133 - 450 04/02 [place] HEMATOLOGY RDW 13.2 11.5 - 04/02 MH 14.5 /2016 [place] HEMATOLOGY MCHC 34.7 32.0 - 04/02 MH 36.0 /2016 [place] HEMATOLOGY MCH 34.1 27.0 - 04/02 MH 31.0 [place] HEMATOLOGY MCV 98.5 80.0 - 04/02 MH 98.0 /2016 [place] HEMATOLOGY Hct 34.1 36.0 - 04/02 MH 48.0 /2016 [facility] HEMATOLOGY Hgb 11.8 12.0 - 04/02 MH 16.0 [place] HEMATOLOGY RBC 3.46 4.20 - 11 MH 5.40 /2017 [facility] HEMATOLOGY WBC 9.0 3.7 - 10.4 04/02 [place] URINE AND UA Turbidity Clear Clear 09/23 [facility] (09/23/15 8:04 PM) /2015 [place] URINE AND UA Color Yellow Yellow 09/23 [facility] *NA* /2015 [facility] (09/23/15 8:04 PM) URINE AND UA Glucose Negative Negative 09/23 [facility] mg/dL mg/dL /2015 [facility] URINE AND UA Protein Negative Negative 09/23 [facility] mg/dL mg/dL /2015 [place] URINE AND UA Ketones Negative Negative 09/23 [facility] mg/dL mg/dL /2015 [facility] URINE AND UA pH 7.0 5.0 - 8.0 09/23 [facility]OOL /2015 [place] URINE AND UA Spec Grav 1.020 <=1.030 09/23 STOOL /2015 [facility] URINE AND UA Bili Negative Negative 09/23 STOOL *NA* /2015 [facility] (09/23/15 8:04 PM) URINE AND UA 0.2 0.1 - 1.0 09/23 [facility] Urobilinogen /2015 [facility] URINE AND UA Blood Negative Negative 09/23 [facility] (09/23/15 8:04 PM) /2015 [place] URINE AND UA Leuk Est Negative Negative 09/23 [facility] (09/23/15 8:04 PM) [place] URINE AND UA Nitrite Negative Negative 09/23 [facility] (09/23/15 8:04 PM) [place] URINE AND Micro? Performed 09/23 [facility] (09/23/15 8:04 PM) [place] URINE AND UA Sq Epi None Seen Few 09/23 [facility] (09/23/15 8:04 PM) /2015 [place] URINE AND UA Bacteria None Seen None Seen 09/23 [facility] (09/23/15 8:04 PM) /2015 [place] URINE AND UA RBC None Seen 0 - 2 09/23 [facility] (09/23/15 8:04 PM) /2015 [place] URINE AND UA WBC None Seen None Seen 09/23 [facility] (09/23/15 8:04 PM) /2015 [place] URINE CHEM U Preg Negative Negative 09/23 (09/23/15 8:04 PM) [place] VIRAL - Influ B Negative Negative 08/08 SEROLOG[facility] (08/09/15 5:25 AM) /2015 [place] VIRAL - Influ A Negative Negative 08/08 SEROLOGY (08/09/15 5:25 AM) [place] RAPID Grp A Strep Negative Negative 05/01 Scr (05/01/15 3:49 AM) [facility] ast ELECTROLYT AGAP 10.8 10.0 - 09/08 ES 20.0 /2014 [facility] ELECTROLYT B/C Ratio 21 6 - 25 09/08 ES [facility] ELECTROLYT Globulin 3.8 2.0 - 4.0 09/08 ES [facility] ELECTROLYT A/G Ratio 0.9 0.7 - 1.6 09/08 ES [facility] ELECTROLYT eGFR 127 09/08 <sup>1</sup>R esult [facility] Comment: The eGFR is calculated using the CKD-EPI formula. In most young, healthy individuals the eGFR will be >90 mL/min/1.73m2 . The eGFR declines with age. An eGFR of 60-89 may be normal in some populations, particularly the elderly, for whom the CKD-EPI formula has not been extensively validated. Use of the eGFR is not recommended in the following populations:& lt;br/>
I ndividuals with unstable creatinine concentration s, including patients and those with serious co-morbid conditions.<b r/>
Patie nts with extremes in muscle mass or diet.

The data above are obtained from the National Kidney Disease Education Program (NKDEP) which additionally recommends that when the eGFR is used in patients with extremes of body mass index for purposes of drug dosing, the eGFR should be multiplied by the estimated BMI. ELECTROLYT Bili Total 0.5 0.2 - 1.3 09/08 ES /2014 [facility] ELECTROLYT Alk Phos 47 39 - 136 09/08 ES /2014 [facility] ELECTROLYT ALT 19 0 - 65 09/08 ES [facility] ELECTROLYT Albumin Lvl 3.3 3.5 - 5.0 09/08 ES [facility] ELECTROLYT AST 10 0 - 37 09/08 ES [facility] ELECTROLYT Calcium Lvl 8.9 8.5 - 10.5 09/08 ES [facility] ELECTROLYT Glucose Lvl 89 70 - 99 09/08 <sup>2</sup>I nterpretive [facility] Data: Adult reference range values reflect the clinical guidelines
of the [place] [employer]. ELECTROLYT BUN 15 7 - 22 09/08 ES [place] ELECTROLYT Chloride Lvl 109 95 - 109 09/08 [facility] [place] ELECTROLYT CO2 28 24 - 32 09/08 [facility] [place] ELECTROLYT Total 7.1 6.4 - 8.4 09/08 [facility] [place] ELECTROLYT Potassium 3.8 3.5 - 5.1 09/08 ES Lvl /2014 [place] ELECTROLYT Creatinine 0.7 0.5 - 1.4 09/08 ES Lvl [place] ELECTROLYT Sodium Lvl 144 135 - 145 09/08 [facility] [place] HEMATOLOGY Monocytes 3.0 2.0 - 12.0 09/08 [place] HEMATOLOGY Segs 86.5 45.0 - 09/08 75.0 /2014 [place] HEMATOLOGY Lymphocytes 10.0 20.0 - 09/08 40.0 /2014 [place] HEMATOLOGY Eosinophils 0.3 0.0 - 4.0 09/08 [place] HEMATOLOGY Lymphocytes 1.1 1.0 - 5.5 09/08 MH /2014 [place] HEMATOLOGY Basophils 0.2 0.0 - 1.0 09/08 [place] HEMATOLOGY Segs-Bands # 9.4 1.5 - 8.1 09/08 [place] HEMATOLOGY Monocytes # 0.3 0.0 - 0.8 09/08 [facility] HEMATOLOGY Platelet 295 133 - 450 09/08 [facility] HEMATOLOGY MCHC 34.8 32.0 - 09/08 MH 36.0 /2014 [facility] HEMATOLOGY RDW 12.9 11.5 - 09/08 MH 14.5 /2014 [facility] HEMATOLOGY MPV 6.9 7.4 - 10.4 09/08 [place] HEMATOLOGY MCV 93.1 80.0 - 09/08 98.0 /2014 [place] HEMATOLOGY MCH 32.4 27.0 - 09/08 MH 31.0 /2014 [place] HEMATOLOGY Hct 31.4 36.0 - 09/08 48.0 /2014 [facility] HEMATOLOGY WBC 10.8 3.7 - 10.4 09/08 [facility] HEMATOLOGY Hgb 10.9 12.0 - 09/08 16.0 /2014 [place] HEMATOLOGY RBC 3.37 4.20 - 09/08 MH 5.40 /2014 [facility] URINE AND UA RBC None Seen 0 - 2 09/08 [facility] (09/08/14 12:18 PM) /2014 [place] URINE AND UA Bacteria Few /HPF None Seen 09/08 STOOL /HPF /2014 [facility] URINE AND UA Sq Epi Moderate Few /LPF 09/08 STOOL /LPF /2014 [facility] URINE AND UA WBC None Seen None Seen 09/08 [facility] (09/08/14 12:18 PM) /2014 [place] URINE AND UA 0.2 0.1 - 1.0 09/08 STOOL Urobilinogen /2014 [facility] URINE AND UA Blood Negative Negative 09/08 STOOL (09/08/14 12:18 PM) /2014 [place] URINE AND UA Bili Negative Negative 09/08 STOOL *NA* /2014 [facility] (09/08/14 12:18 PM) URINE AND UA Ketones Trace Negative 09/08 STOOL *ABN* /2014 [facility] (09/08/14 12:18 PM) URINE AND UA Glucose Negative Negative 09/08 STOOL (09/08/14 12:18 PM) /2014 [place] URINE AND UA Leuk Est Negative Negative 09/08 STOOL (09/08/14 12:18 PM) /2014 [place] URINE AND UA Nitrite Negative Negative 09/08 STOOL (09/08/14 12:18 PM) [place] URINE AND UA Color Yellow Yellow 09/08 STOOL *NA* /2014 [facility] (09/08/14 12:18 PM) URINE AND UA Protein Negative Negative 09/08 STOOL (09/08/14 12:18 PM) [place] URINE AND UA pH 6.0 5.0 - 8.0 09/08 STOOL /2014 [facility] URINE AND UA Turbidity Clear Clear 09/08 STOOL (09/08/14 12:18 PM) /2014 [place] URINE AND UA Spec Grav >=1.030 <=1.030 09/08 STOOL *ABN* /2014 [facility] (09/08/14 12:18 PM) URINE CHEM U Preg Negative Negative 09/08 (09/08/14 12:18 PM) [place] CHEM PANEL eGFR 108 04/16 <sup>1</sup>R esult [place] Comment: The eGFR is calculated using the CKD-EPI formula. In most young, healthy individuals the eGFR will be >90 mL/min/1.73m2 . The eGFR declines with age. An eGFR of 60-89 may be normal in some populations, particularly the elderly, for whom the CKD-EPI formula has not been extensively validated. Use of the eGFR is not recommended in the following populations:& lt;br/>
I ndividuals with unstable creatinine concentration s, including patients and those with serious co-morbid conditions.<b r/>
Patie nts with extremes in muscle mass or diet.

The data above are obtained from the National Kidney Disease Education Program (NKDEP) which additionally recommends that when the eGFR is used in patients with extremes of body mass index for purposes of drug dosing, the eGFR should be multiplied by the estimated BMI. CHEM PANEL Total 8.1 6.4 - 8.4 04/16 [place] CHEM PANEL CO2 27 24 - 32 04/16 [place] CHEM PANEL Calcium Lvl 9.4 8.5 - 10.5 04/16 [place] CHEM PANEL Alk Phos 44 39 - 136 04/16 [place] CHEM PANEL Albumin Lvl 4.2 3.5 - 5.0 04/16 [place] CHEM PANEL AST 13 0 - 37 04/16 [place] CHEM PANEL ALT 25 0 - 65 04/16 [place] CHEM PANEL Bili Total 1.1 0.2 - 1.3 04/16 [place] CHEM PANEL Sodium Lvl 141 135 - 145 04/16 [place] CHEM PANEL Creatinine 0.8 0.5 - 1.4 04/16 [facility] [place] CHEM PANEL Chloride Lvl 106 95 - 109 04/16 [place] CHEM PANEL Potassium 3.9 3.5 - 5.1 04/16 Lvl [place] CHEM PANEL Glucose Lvl 90 70 - 99 04/16 <sup>2</sup>I nterpretive [facility] Data: Adult reference range values reflect the clinical guidelines
of the [place] [employer]. CHEM PANEL BUN 11 7 - 22 04/16 [facility] CHEM PANEL A/G Ratio 1.1 0.7 - 1.6 04/16 [facility] CHEM PANEL AGAP 11.9 10.0 - 11/20 MH 20.0 /2013 [facility] CHEM PANEL B/C Ratio 14 6 - 25 04/16 [facility] CHEM PANEL Globulin 3.9 2.0 - 4.0 04/16 /2013 [facility] HEMATOLOGY Lymphocytes 2.3 1.0 - 5.5 04/16 MH # /2014 [facility] HEMATOLOGY Segs 50.7 45.0 - 04/16 MH 75.0 /2013 [facility] HEMATOLOGY Monocytes 6.2 2.0 - 12.0 04/16 [place] HEMATOLOGY Eosinophils 5.8 0.0 - 4.0 04/16 [facility] HEMATOLOGY Segs-Bands # 3.2 1.5 - 8.1 04/16 [place] HEMATOLOGY Basophils 0.7 0.0 - 1.0 04/16 [facility] HEMATOLOGY Monocytes # 0.4 0.0 - 0.8 04/16 [facility] HEMATOLOGY Eosinophils 0.4 0.0 - 0.5 04/16 MH # /2013 [facility] HEMATOLOGY Lymphocytes 36.6 20.0 - 04/16 40.0 [facility] HEMATOLOGY MPV 7.1 7.4 - 10.4 04/16 /2013 [facility] HEMATOLOGY Platelet 269 133 - 450 04/16 [facility] HEMATOLOGY RBC 3.75 4.20 - 04/16 5.40 /2013 [facility] HEMATOLOGY Hgb 12.4 12.0 - 04/16 16.0 /2013 [facility] HEMATOLOGY MCHC 34.5 32.0 - 04/16 36.0 /2013 [facility] HEMATOLOGY MCH 32.9 27.0 - 04/16 31.0 /2013 [facility] HEMATOLOGY RDW 12.6 11.5 - 04/16 14.5 /2013 [facility] HEMATOLOGY WBC 6.2 3.7 - 10.4 04/16 [facility] HEMATOLOGY Hct 35.8 36.0 - 04/16 48.0 /2013 [facility] HEMATOLOGY MCV 95.5 80.0 - 04/16 98.0 /2013 [facility] THYROID TSH 0.373 0.360 - 04/16 PANEL 3.740 /2013 [facility] URINE AND UA Nitrite Negative Negative 04/16 STO[facility] (04/16/14 12:20 PM) /2013 [place] URINE AND UA Leuk Est Small Negative 04/16 STOOL *ABN* /2013 [facility] (04/16/14 12:20 PM) URINE AND UA Color [place] Yellow 04/16 STOOL *ABN* [facility] (04/16/14 12:20 PM) URINE AND UA Glucose Negative Negative 04/16 [facility] (04/16/14 12:20 PM) [place] URINE AND UA Turbidity Cloudy Clear 04/16 STOOL *ABN* [facility] (04/16/14 12:20 PM) URINE AND UA Spec Grav 1.010 <=1.030 04/16 STOOL [facility] URINE AND UA Bili Negative Negative 04/16 STOOL *NA* [facility] (04/16/14 12:20 PM) URINE AND UA Protein Trace Negative 04/16 STOOL *ABN* [facility] (04/16/14 12:20 PM) URINE AND UA pH 6.0 5.0 - 8.0 04/16 STOOL [facility] URINE AND UA 0.2 0.1 - 1.0 04/16 STOOL Urobilinogen [facility] URINE AND UA Ketones Negative Negative 04/16 STOOL *NA* [facility] (04/16/14 12:20 PM) URINE AND UA Blood Large Negative 04/16 STOOL *ABN* [facility] (04/16/14 12:20 PM) URINE AND UA WBC 0-2 /HPF None Seen 04/16 STOOL /HPF [facility] URINE AND UA Sq Epi Few /LPF Few /LPF 04/16 STOOL [facility] URINE AND UA Bacteria Few /HPF None Seen 04/16 STOOL /HPF [facility] URINE AND UA RBC - /HPF 0 - 2 04/16 STOOL [facility] Pathology Reports No Data Provided for This Section Diagnostic Reports Report Value Date Source Spine lumbar wo Clinical Indication: M54.42 Lumbago with sciatica, left side - M54.42 Lumbago with sciatica, left side 09/25/2017 [facility] Summ [place] contrast MRI Comparison: None TECHNIQUE: Multiplanar T1, T 2, STIR weighted noncontrast MRI of the lumbar spine is performed on the 1.5 Renetta magnet. FINDINGS: ALIGNMENT AND GENERAL ASSESS MENT: There is normal alignment of the lumbar spine. The bone marrow is normal for the patient's age. There is no fracture. The anterior and posterior paraspinal so ft tissues are normal. The c onus medullaris ends at the L1 level. For the sake of nomenclature, five lumbar vertebrae are assumed. DISC SPACES: T12-L1: There is no signific ant disc bulge, protrusion, or degenerative change and no spinal or foraminal stenosis. L1-L2: There is no significa nt disc bulge, protrusion, or degenerative change and no spinal or foraminal stenosis. L2-L3: There is no significa nt disc bulge, protrusion, or degenerative change and no spinal or foraminal stenosis. L3-L4: There is no significa nt disc bulge, protrusion, or degenerative change and no spinal or foraminal stenosis. L4-L5: There is no significa nt disc bulge, protrusion, or degenerative change and no spinal or foraminal stenosis. L5-S1: There is no significa nt disc bulge, protrusion, or degenerative change and no spinal or foraminal stenosis. IMPRESSION: Normal noncontrast magnetic resonance imaging of the lumbar spine. SL: [id number] Chest 2 views DX Patient Name: SADE WEI 01/17/2016 [facility] : 1975; Age: 40 years y/o Female MR: [id number] Study: Chest 2 views DX 01/17/2016 11:26 AM CDT Ordering Physician: Lesa Meng Clinical Indication: Coughing; Comparison: 08/09/2015 FINDINGS: The PA and lateral chest rad iographs shows normal lung volumes without interstitial or airspace opacities, pleural effusions or pneumothorax. The cardiomediastinal contours are normal. There are no clinically significant osseous abno rmalities noted. IMPRESSION: No chest radiographic evidence of acute cardiopu lmonary disease. SL: [id number] Chest 1view DX Clinical Indication: Bodyach es, headache, cough, nausea/vomiting. 08/09/2015 [facility] Comparison: 09/08/2014 FINDINGS: An AP view of the chest is submitted for interpr etation. Lungs are clear. Heart size is normal. Central pulmonary vasculat ure appears normal. No effusion. No pneumothorax. Osseous structures demonstrate no acute abnormal ity. IMPRESSION: 1. No radiographically apparent acute cardiopulm onary process. SL: [id number] Chest 1view DX Name: SADE WEI 09/08/2014 [facility] : 1975 SEX: F Ordering Physician: Jaya Lind Chest 1view : Sep 08, 2014 01:29:00 PM. CLINICAL INDICATION: Cough and fever Comparison Examination: None FINDINGS: Single frontal view of the chest was obtained. The cardiomediastinal silhouette is normal. The lungs are clear. There i s no lobar consolidation, effusion, edema, or pneumothorax. Surgical clips are present in the right upper qu adrant of the abdomen. IMPRESSION: No acute cardiopulmonary abnormality. SL: 24 Neck soft tissue w Name: SADE WEI 04/16/[address] : 1975 SEX: F Ordering Physician: Donna Champagne Neck soft tissue w contrast CT : Apr 16, 2014 02 :31:00 PM. CLINICAL INDICATION: Dizziness Comparison Examination: None Technique: Postcontrast neck CT is perf ormed with a multidetector CT. Coronal and sagittal reconstructions were obtained and viewed on the workstation. Contrast: 100 cc of intravenous Omnipaque Dose: The total exam DLP is 335 mGy-cm. FINDINGS: There are a few prominent en hancing nodules in the submental region measuring up to 1.1 cm in the long axis. These likely represent reactive nodes. Otherwise, no cervical adenopathy seen. The nasopharynx, oropharynx, hypopharynx and larynx are unremarkable. The parotid and submandibular glands are unremarkable. The thyroid gland is diffusely enlarged. There is a 2 mm calcification in the left thyroid lobe. The jugular veins and caroti d vessels are unremarkable. The visualized orbits are unremarkable. The visualized lung apices are normal. The visua lized bones are unremarkable. IMPRESSION: 1. A few enhancing lymph nod es in the submental region measuring up to 1.1 cm in long axis. These are likely reactive. 2. Diffuse enlargement of th e thyroid gland with a punctate calcification in the left lobe. Correlation with thyroid profile suggested. Consultation Notes No Data Provided for This Section Discharge Summaries No Data Provided for This Section History and Physicals No Data Provided for This Section Vital Signs Vital Sign Value Date Comments Source Heart Rate 73 04/02/2017 [facility] Rate 18 04/02/2017 [facility] Systolic (mm Hg) 130 04/02/2017 [facility] t Diastolic (mm Hg) 80 04/02/2017 [facility] Systolic (mm Hg) 159 04/02/2017 [facility] t Diastolic (mm Hg) 88 04/02/[address] Heart Rate 71 04/02/2017 [facility] Respitory Rate 19 04/02/2017 [facility] Temperature Oral (F) 98.7 F 04/02/2017 [facility] Weight 78.773 04/02/2017 [facility] Height 172.72 cm 04/02/2017 [facility] BMI Calculated 26.41 04/02/2017 [facility] Systolic (mm Hg) 142 03/20/2017 [facility] Diastolic (mm Hg) 91 [facility] 90 03/20/2017 [facility] Temperature Oral (F) 98.2 F 03/20/2017 [facility] Respitory Rate 18 03/20/2017 [facility] Height 172.72 cm 03/20/2017 [facility] BMI Calculated 25.14 03/20/2017 [facility] Weight 75 03/20/2017 [facility] Respitory Rate 18 03/20/2017 [facility] Heart Rate 95 03/20/2017 [facility] Systolic (mm Hg) 133 03/20/2017 [facility] Diastolic (mm Hg) 85 03/20/2017 [facility] Temperature Oral (F) 98.5 F 03/20/2017 [facility] Systolic (mm Hg) 146 03/07/2017 [facility] Diastolic (mm Hg) 86 03/07/[address] Heart Rate 91 03/07/2017 [facility] Respitory Rate 18 03/07/2017 [facility] Temperature Oral (F) 98.6 F 03/07/2017 [facility] Weight 81.364 03/07/2017 [facility] Height 172.72 cm 03/07/2017 [facility] BMI Calculated 27.27 03/07/2017 [facility] Heart Rate 70 01/17/2016 [facility] Systolic (mm Hg) 120 01/17/2016 [facility] Diastolic (mm Hg) 74 01/17/[address] Respitory Rate 18 01/17/2016 [facility] Temperature Oral (F) 98.0 F 01/17/2016 [facility] BMI Calculated 23.46 01/17/2016 [facility] Weight 70 01/17/2016 [facility] Height 172.72 cm 01/17/2016 [facility] Respitory Rate 16 01/17/2016 [facility] Temperature Oral (F) 98.3 F 01/17/2016 [facility] Systolic (mm Hg) 132 01/17/2016 [facility] Diastolic (mm Hg) 83 01/17/[address] Heart Rate 89 01/17/2016 [facility] Weight 69.318 09/24/2015 [facility] BMI Calculated 23.24 09/24/2015 [facility] Height 172.72 cm 09/24/2015 [facility] Respitory Rate 18 09/24/2015 [facility] Temperature Oral (F) 98.3 F 09/24/2015 [facility] Systolic (mm Hg) 128 09/24/2015 [facility] Diastolic (mm Hg) 78 09/24/[address] Heart Rate 75 09/24/2015 [facility] BMI Calculated 23.24 09/24/2015 [facility] Height 172.72 cm 09/24/2015 [facility] Weight 69.318 09/24/2015 [facility] Systolic (mm Hg) 118 08/09/2015 [facility] Diastolic (mm Hg) 79 08/09/[address] Respitory Rate 20 08/09/2015 [facility] Heart Rate 82 08/09/2015 [facility] Heart Rate 84 08/09/2015 [facility] Systolic (mm Hg) 121 08/09/2015 [facility] Diastolic (mm Hg) 81 08/09/[address] Respitory Rate 20 08/09/2015 [facility] Heart Rate 85 08/09/2015 [facility] Systolic (mm Hg) 120 08/09/2015 [facility] Diastolic (mm Hg) 81 08/09/[address] Respitory Rate 20 08/09/2015 [facility] Weight 69.5 08/09/2015 [facility] BMI Calculated 23.3 08/09/2015 [facility] Height 172.72 cm 08/09/2015 [facility] Temperature Oral (F) 99.5 F 08/09/2015 [facility] Systolic (mm Hg) 152 07/27/2015 [facility] Diastolic (mm Hg) 98 07/27/[address] Respitory Rate 20 07/27/2015 [facility] Heart Rate 78 07/27/2015 [facility] Weight 65.909 07/26/2015 [facility] BMI Calculated 22.09 07/26/2015 [facility] Height 172.72 cm 07/26/2015 [facility] Temperature Oral (F) 98.5 F 07/26/2015 [facility] Respitory Rate 20 07/26/2015 [facility] Heart Rate 98 07/26/2015 [facility] Systolic (mm Hg) 167 07/26/2015 [facility] Diastolic (mm Hg) 99 07/26/[address] Systolic (mm Hg) 140 05/01/2015 [facility] Diastolic (mm Hg) 83 05/01/[address] Heart Rate 71 05/01/2015 [facility] Respitory Rate 18 05/01/2015 [facility] Temperature Oral (F) 97.8 F 05/01/2015 [facility] Height 172.72 cm 05/01/2015 [facility] Systolic (mm Hg) 136 05/01/2015 [facility] Diastolic (mm Hg) 92 05/01/[address] Respitory Rate 20 05/01/2015 [facility] Heart Rate 79 05/01/2015 [facility] Temperature Oral (F) 97.9 F 05/01/2015 [facility] BMI Calculated 23.98 05/01/2015 [facility] Weight 71.545 05/01/2015 [facility] Heart Rate 68 09/08/2014 [facility] Systolic (mm Hg) 145 09/08/2014 [facility] Diastolic (mm Hg) 87 09/08/[address] Respitory Rate 20 09/08/2014 [facility] BMI Calculated 22.86 09/08/2014 [facility] Weight 68.182 09/08/2014 [facility] Systolic (mm Hg) 158 09/08/2014 [facility] Diastolic (mm Hg) 93 09/08/[address] Heart Rate 99 09/08/2014 [facility] Respitory Rate 20 09/08/2014 [facility] Temperature Oral (F) 99.1 F 09/08/2014 [facility] Height 172.72 cm 09/08/2014 [facility] Respitory Rate 14 04/16/2014 [facility] Heart Rate 52 04/16/2014 [facility] Diastolic (mm Hg) 84 04/16/[address] Systolic (mm Hg) 132 04/16/2014 [facility] Temperature Oral (F) 98.4 F 04/16/2014 [facility] Heart Rate 69 04/16/2014 [facility] Respitory Rate 18 04/16/2014 [facility] Systolic (mm Hg) 126 04/16/2014 [facility] t Diastolic (mm Hg) 79 04/16/2014 [facility] st Weight 76.42 04/16/2014 [facility] Height 172.72 cm 04/16/2014 [facility] BMI Calculated 25.62 04/16/2014 [facility] Temperature Oral (F) 98.3 F 04/16/2014 [facility]ast Heart Rate 65 04/16/2014 [facility] Respitory Rate 18 04/16/2014 [facility] Systolic (mm Hg) 132 04/16/2014 [facility] t Diastolic (mm Hg) 82 04/16/2014 [facility] st Encounters Location Location Encounter Encounter Reason Attending ADM DC Stat us Source Details Type Number For Provider Date Date Visit [facility] [place] [id number] Bryon 04/16 04/16 [facility] Emergency [place]q /2013 [facility] [place] [id number] Jaya Lind 09/08 09/08 [facility] [place] [id number] Tony Mercedes 05/01 05/01 [facility]2014 [facility] [place] [id number] Brittney 07/26 [facility] [place] /2015 [facility] [place] [id number] Marlon Harerll 08/08 08/08 [facility] Emergency /2015 [facility] [place] [id number] Lenard 09/23 09/23 [facility] Muñoz /2015 [facility] Emergency [id number] Kameron Hernandez 01/16 01/16 [facility]2015 [facility] Emergency [id number] Jerome 03/07 03/07 [facility] [place] /2016 [facility] Emergency [id number] Alber 03/20 03/20 [facility] /[address] [facility] Emergency [id number] Marlon Harrell 04/02 04/02 [facility] /2016 [facility] MNA Phone [id number] 09/12 09/14 Misc her Neurosurger Message /2017 [facility] Phone [id number] 09/17 09/19 Misc her Neurosurger Message /2017 [facility] Outpt Diag [id number] Rian 09/25 09/26 [facility]2017 [facility] [place] [facility]NA Phone [id number] 09/27 09/29 Misc her Neurosurger Message /2017 [facility] Phone [id number] 09/27 09/29 Misc her Neurosurger Message /2017 [facility] Phone [id number] 10/01 10/03 Misc her Neurosurger Message /2017 [facility] Phone [id number] 10/03 10/05 Mis her Neurosurger Message /2017 [facility] Ambulatory [id number] Vic 10/03 10/03 [facility] Neurosurger Pre-Reg Fenoy Jr /2017 [facility] Procedures Procedure Code Date Perfomer Comments Source Appendectomy [id number] [facility] Neuro,[facility], O[facility] [place] Cholecystectomy [id number] [facility], [facility] [place] Assessment and Plan No Data Provided for This Section Plan of Care No Data Provided for This Section Social History Social History Date Source Social History TypeResponse 01/17/2016 [facility] Substance Abuse 1 Alcohol 2 Smoking Status Never smoker; Type: Cigarettes; Exposure to Tobacco Smoke None; Cigarette Smoking Last 365 Days No; Reg Smoking Cessation Counseling No [id number] Social History TypeResponse 01/17/2016 [facility] Neur o Substance Abuse 1 Alcohol 2 Smoking Status Never smoker; Type: Cigarettes; Exposure to Tobacco Smoke None; Cigarette Smoking Last 365 Days No; Reg Smoking Cessation Counseling No entered on: 10/02/17 [id number] Social History TypeResponse 01/17/2016 [facility] Summ er [place] Substance Abuse 1 Alcohol 2 Smoking Status Never smoker; Type: Cigarettes; Exposure to Tobacco Smoke None; Cigarette Smoking Last 365 Days No; Reg Smoking Cessation Counseling No entered on: 10/02/17 [id number] Social History TypeResponse 01/17/2016 [facility] Substance Abuse 1 Alcohol 2 Smoking Status Never smoker; Type: Cigarettes; Exposure to Tobacco Smoke None; Cigarette Smoking Last 365 Days No; Reg Smoking Cessation Counseling No [id number] Family History No Data Provided for This Section Advance Directives No Data Provided for This Section Functional Status No Data Provided for This Section
== END 2020-05-04 14:57 | disposition home or self-care (01) ==
LOC: ER 12:57
DX: M54.31 Sciatica, right side (principal); F17.210 Nicotine dependence, cigarettes, uncomplicated; N17.9 Acute kidney failure, unspecified; I10 Essential (primary) hypertension; F41.9 Anxiety disorder, unspecified; Z88.8 Allergy status to other drugs, medicaments and biological substances
CPT/HCPCS: 36415; 74176; 76377; 80048; 80076; 81003; 81015; 81025; 83690; 85025; 87086; 87088; 96374; 99284